=== PATIENT | male | born 1970 | race Caucasian/White ===

== ENCOUNTER 2023-12-11 14:09 | Emergency (ER) | payer MEDICAID, SELFPAY ==
[2023-12-11 14:14] VITALS: BP 160/90; PULSE 83; RESP 15; TEMP 36; O2SAT 95
--- NOTE | 2023-12-11 14:37 | W.ED.GENAD ---
Discharge Plan Disposition Patient Disposition: Home Condition: Stable Discharge Details Clinical Impression: Infected wound Primary Care Provider: Unknown,Unknown ED Provider: Alejandro Alcantar Home Meds and New Rx's Prescriptions: New sulfamethoxazole-trimethoprim [Bactrim DS] 800-160 mg tablet 1 tab PO BID Qty: 14 0RF amoxicillin-pot clavulanate 875-125 mg tablet 1 tab PO BID Qty: 14 0RF Continued hydroxychloroquine 200 mg tablet 200 mg PO DAILY Patient Comments: TAKE ONE TABLET BY MOUTH EVERY DAY omeprazole 40 mg capsule,delayed release(DR/EC) 40 mg PO DAILY Patient Comments: TAKE ONE CAPSULE BY MOUTH EVERY DAY gabapentin 300 mg capsule 300 mg PO TID Patient Comments: TAKE ONE CAPSULE BY MOUTH THREE TIMES A DAY quetiapine 100 mg tablet 100 mg PO DAILY PRN Patient Comments: TAKE ONE TABLET BY MOUTH AT BEDTIME DIRECTED quetiapine 50 mg tablet 50 mg PO DAILY Patient Comments: TAKE ONE TABLET BY MOUTH EVERY MORNING DIRECTED Discharge Instructions Care Plan Goals: Please take antibiotics as prescribed. Avoid touching the wounds is much as possible. Follow-up with your primary care provider within 1 to 2 weeks If you feel more ill or have new symptoms such as difficulty breathing return to the emergency department for reevaluation. HPI General Mode of arrival: ambulatory. Date/Time Provider Initiated Documentation: 12/11/23 14:11. Limitations to Documentation: no limitations. Information obtained by: patient. History of Present Illness 53 year old M presents to the emergency department with the chief complaint of lesions on legs and arms, described as moderate, Patient started experiencing this day(s) (10) and it has been constant. No relieving factors improve symptom(s), No exacerbating factors reported . Patient notes denies fever/chills. Patient did receive the following treatments prior to arrival, none Related Data Home Medications ?Medication ?Instructions ?Recorded ?Confirmed amoxicillin 875 mg-potassium 1 tab PO BID #14 tabs 12/11/23 clavulanate 125 mg tablet gabapentin 300 mg capsule 300 mg PO TID 12/11/23 12/11/23 hydroxychloroquine 200 mg tablet 200 mg PO DAILY 12/11/23 12/11/23 omeprazole 40 mg capsule,delayed 40 mg PO DAILY 12/11/23 12/11/23 release quetiapine 100 mg tablet 100 mg PO DAILY PRN 12/11/23 12/11/23 quetiapine 50 mg tablet 50 mg PO DAILY 12/11/23 12/11/23 sulfamethoxazole 800 1 tab PO BID #14 tabs 12/11/23 mg-trimethoprim 160 mg tablet (Bactrim DS) Previous Rx's ?Medication ?Instructions ?Recorded amoxicillin 875 mg-potassium 1 tab PO BID #14 tabs 12/11/23 clavulanate 125 mg tablet sulfamethoxazole 800 1 tab PO BID #14 tabs 12/11/23 mg-trimethoprim 160 mg tablet (Bactrim DS) Allergies Allergy/AdvReac Type Severity Reaction Status Date / Time No Known Allergies Allergy Unverified 12/11/23 14:24 General Stated Complaint: RashLesion SERGEY: 3 Review of Systems All systems reviewed & are unremarkable except as noted in HPI and below Constitutional Constitutional: Denies chills, Denies fever(s) and Denies weakness Cardiovascular Cardiovascular: Denies chest pain and Denies dyspnea Respiratory Respiratory: Denies cough and Denies dyspnea Gastrointestinal Gastrointestinal: Denies abdominal pain, Denies nausea and Denies vomiting Integumentary/Breasts Skin/Breast: Reports wounds Neurologic Neurologic: Denies weakness Exam Const General: no acute distress Orientation: alert HENUT Head: normal to inspection Ears: external ears normal General nose exam: external nose normal Mouth: moist mucous membranes Eyes General: appearance normal, both eyes and all related structures Neck Neck: normal visual inspection Resp Effort & Inspection: normal respiratory effort and able to speak in complete sentences Cardio Jugular venous pressure: no JVD Rate: regular rate Heart Sounds: no murmurs Skin General skin exam: other (wounds on legs and arms) Neuro General: patient alert and patient oriented x3 Extrem General: normal to inspection Psych Mental Status: mental status grossly normal Course Vital Signs Vital signs: Vital Signs Temperature 36.0 C L 12/11/23 14:14 Pulse 83 12/11/23 14:14 Respiratory Rate 15 12/11/23 14:14 Blood Pressure 160/90 H 12/11/23 14:14 Pulse Oximetry 95 12/11/23 14:14 Temperature 36.0 C L 12/11/23 14:14 Pulse 83 12/11/23 14:14 Respiratory Rate 15 12/11/23 14:14 Respiratory Effort Normal 12/11/23 14:23 Blood Pressure 160/90 H 12/11/23 14:14 Blood Pressure Position Sitting 12/11/23 14:14 Pulse Oximetry 95 12/11/23 14:14 Oxygen Delivery Method Room Air 12/11/23 14:14 Oxygen Flow Rate 0 12/11/23 14:14 Medical Decision Making 53-year-old male with a history of substance abuse, denies ever using IV drugs but does use crack and smokes it, comes in with 1 to 2 weeks of scabs on his legs and arms. He also has a white fluid collection on the right palmar surface of his hand. He denies any fevers, chills, chest pain, difficulty breathing. He has scabs ranging in size from 2 to 3 cm on his anterior lower legs that appear to be pink wound, he denies picking however. There is faint 2 mm erythema surrounding these. He also has similar lesions on his arms, there is no crepitus or severe tenderness. He has a 1 x 2 cm superficial abscess on the right palmar surface, he has full range of motion and no swelling or pain in the fingers, fully range of motion of the fingers. No findings on exam to suggest flexor tenosynovitis. He gave verbal consent and I performed an I&D of the abscess and got purulent material. He tolerated well. This was done under sterile technique. He has no murmurs, no other lesions such as Janeway lesions to suggest endocarditis and has no signs of IV drug use on his arms. Will initiate oral antibiotic therapy and he will follow-up with his PCP, return precautions given. Given lack of systemic symptoms and his well appearance doubt sepsis and do not feel any labs or imaging indicated at this current time but he was given strict return precautions Differential Diagnosis Differential Diagnosis: drug abuse, cellulitis, abscess Quality:SDOH Health Related Social Needs: No Data to Display [facility] All Active Problems (Updated 12/11/23 @ 14:43 by Alejandro Alcantar MD) Infected wound (Acute) Social History Smoking risk assessment performed?: No
[2023-12-11] MEDS: Sulfameth/Trimeth DS TAB 1 TAB PO (15:10)
[2023-12-11] MEDS: Amoxicillin 875/Clav. 125 TAB PO (15:10)
== END 2023-12-11 15:35 | disposition home or self-care (01) ==
LOC: ER 15:12
PROVIDERS: Emergency Provider Emergency Medicine
DX: L98.8 Other specified disorders of the skin and subcutaneous tissue (principal); L08.9 Local infection of the skin and subcutaneous tissue, unspecified; L02.511 Cutaneous abscess of right hand; F14.90 Cocaine use, unspecified, uncomplicated
CPT/HCPCS: 10060; 99283

== ENCOUNTER 2024-04-05 13:18 | Emergency (ER) | payer MEDICAID, SELFPAY ==
[2024-04-05] VITALS (26 sets, daily range): BP systolic 124–150; BP diastolic 68–90; PULSE 69–92; RESP 5–30; TEMP 36.6–36.8; O2SAT 90–98
--- NOTE | 2024-04-05 13:30 | DI.RAD_ITS ---
Exam(s) XR PORTABLE CHEST AP EXAM: XR PORTABLE CHEST AP CLINICAL HISTORY: SOB trauma TECHNIQUE: 2D digital imaging was performed of the chest. One image was obtained. An AP view was ob tained. COMPARISON: There are no priors for comparison. FINDINGS: MEDIASTINUM: Normal. HEART: Normal. PULMONARY VASCULATURE: Normal. LUNGS: There are bilateral basilar infiltrates, left greater than right. PLEURAL SPACE: No pleural effusion or pneumothorax. BONE:Within normal limits for the patient's age. OTHER FINDINGS:Normal. IMPRESSION: Bilateral pulmonary infiltrates. This may represent contusion, atelectasis or pneumonia. DATA REPOSITORY: RADIATION DOSE DELIVERED:
--- NOTE | 2024-04-05 13:43 | W.ED.GENAD ---
Discharge Plan Disposition Patient Disposition: [facility] Discharge Details Clinical Impression: Hx of falling, Acute pain of left shoulder, Pain of right middle finger, Pericardial effusion, Ground glass opacity present on imaging of lung, Adrenal nodule, Esophageal reflux Primary Care Provider: None,None ED Provider: Marbin Goldberg [place] Meds and New Rx's Prescriptions: Continued hydroxychloroquine 200 mg tablet 200 mg PO DAILY Patient Comments: TAKE ONE TABLET BY MOUTH EVERY DAY omeprazole 40 mg capsule,delayed release(DR/EC) 40 mg PO DAILY Patient Comments: TAKE ONE CAPSULE BY MOUTH EVERY DAY gabapentin 300 mg capsule 300 mg PO TID Patient Comments: TAKE ONE CAPSULE BY MOUTH THREE TIMES A DAY quetiapine 100 mg tablet 100 mg PO DAILY PRN Patient Comments: TAKE ONE TABLET BY MOUTH AT BEDTIME DIRECTED quetiapine 50 mg tablet 50 mg PO DAILY Patient Comments: TAKE ONE TABLET BY MOUTH EVERY MORNING DIRECTED sulfamethoxazole-trimethoprim [Bactrim DS] 800-160 mg tablet 1 tab PO BID Qty: 14 0RF amoxicillin-pot clavulanate 875-125 mg tablet 1 tab PO BID Qty: 14 0RF sulfamethoxazole-trimethoprim [Bactrim DS] 800-160 mg tablet 1 tab PO BID Qty: 14 0RF amoxicillin-pot clavulanate 875-125 mg tablet 1 tab PO BID Qty: 14 0RF Discharge Instructions Additional Instructions: You are seen in the emergency department for your fall. Your CAT scan showed no sign of any broken bones. You have no fractures in your shoulder nor in your right hand. Please follow-up with your primary care provider or your mesothelioma team as she had the following incidental findings: Small pericardial effusion??this is a small amount of fluid around your heart, Left adrenal nodule??this is a small abnormal growth on the gland above your kidneys, and Groundglass changes in your lungs??this is inflammation in the lower portions of your lungs. You will also benefit from general surgery follow-up as you have a distended esophagus with food and fluid for which she will benefit from an upper endoscopy which is a procedure in which a camera is used to evaluate your esophagus and stomach. Please continue taking your pain medications as previously prescribed. For your pain please take medications as follows: 1. Take acetaminophen (Tylenol), 1,000 mg (two 500 mg tabs) every 6 hours [2. Take ibuprofen (Advil), 400 mg every 6 hours.] Discharge Data Discharge Date/Time-TO BE ENTERED AT DEPARTURE: 04/05/24 17:38 HPI General Date/Time Provider Initiated Documentation: 04/05/24 13:33. HPI Narrative: MDM Primary care intact. Reassuring shock index. Secondary survey patient has left shoulder tenderness on palpation but no signs of dislocation for which we will get plain films. Patient also has right middle finger tenderness but full range of motion. On CT scan patient was found to have hiatal hernia. He was also found to have bibasilar infiltrates. He has not had any fevers nor cough so I do not feel that these are consistent with pneumonia so will defer antibiotics. He was found to have a small pericardial effusion and this may be related to a malignancy but is less likely posttraumatic finding given his lack of tachycardia hypotension and chest pain. I was in touch with Dr. Zavala who agreed that the patient would not require trauma transfer to tertiary care. He reported that he would be available to consult on the patient where the patient to be hospitalized. It may be that his small pericardial effusion is secondary to malignancy as he does have some enlarged lymph nodes in his thorax and adrenal nodule. He would likely benefit from an echocardiogram at some point. This also may be secondary to his remote history of mesothelioma. I advised patient of his incidental findings his adrenal nodule his pericardial effusion and his groundglass changes in his lungs and his distended esophagus. He will benefit from general surgery clinic follow-up for an upper endoscopy. His repeat H&H was stable and he was never tachycardic nor hypotensive. Given that he was stable and that it has been at least 48 hours since his injury I do not feel the patient requires hospitalization. Given that he is returning to halfway he will go to a somewhat monitored setting. We discussed that he should return to emergency department if he developed shortness of breath to any recurrent falls or if he developed nausea or vomiting that did not stop. HPI This is a 53-year-old male with history of reflux prior and remote prior mesothelioma with remote orchiectomy to the emergency department with corrections officers from incarceration following a fall. Patient reportedly fell 2-3 nights ago out of bed. He landed on his left side. He is right-handed and having pain in his left shoulder and right hand. He has been short of breath but denies nausea or vomiting. He is not having chest pain. Denies hematuria. Exam General: Well-appearing in no acute distress speaking in complete sentences. Head: Normocephalic, atraumatic. Eye: Extraocular eye movements intact. No conjunctival injection. No scleral icterus. Ear, nose, mouth, throat: Grossly normal inspection. Normal voice, handling secretions normally. Neck: Trachea midline. Back: No midline thoracic nor lumbar spinal tenderness. No step-offs or deformities. Cardiovascular: Well-perfused distal extremities. Regular rate and rhythm. Respiratory: Nonlabored respiration. Clear lungs bilaterally. Gastrointestinal: Nondistended abdomen. Musculoskeletal: Left shoulder with tenderness. No ecchymosis. Patient has pain when abducting his left shoulder greater than 90 degrees. He is able to touch his left hand to his contralateral right shoulder. Nontender humerus elbow forearm and hand. Warm well-perfused left hand 2+ left radial pulse. Sensation motor function intact in the left hand across the radial, median, and ulnar nerve distributions. Full range of motion forearm. Patient is able to fully flex and extend at the left elbow. Right hand with mild swelling at the base of the right long finger. Full range of motion right long finger across the MCP, PIP, and DIP joints. 2+ radial pulse. Cap refill less than 2 seconds right fingertips. Nontender right forearm elbow and humerus. Right shoulder nontender full range of motion. Pelvis stable. Bilateral lower extremities nontender. Full range of motion bilateral lower extremities. 5/5 strength dorsi and plantarflexion bilateral lowers. Skin: Normal for age and race, grossly normal temperature and turgor. No acute rash. Neurologic: Alert and appropriate, no apparent acute deficits. Psychiatric: Mood and manner are appropriate. Grooming and personal hygiene are appropriate. Related Data Home Medications ?Medication ?Instructions ?Recorded ?Confirmed amoxicillin 875 mg-potassium 1 tab PO BID #14 tabs 12/11/23 04/05/24 clavulanate 125 mg tablet amoxicillin 875 mg-potassium 1 tab PO BID #14 tabs 12/11/23 04/05/24 clavulanate 125 mg tablet gabapentin 300 mg capsule 300 mg PO TID 12/11/23 04/05/24 hydroxychloroquine 200 mg tablet 200 mg PO DAILY 12/11/23 04/05/24 omeprazole 40 mg capsule,delayed 40 mg PO DAILY 12/11/23 04/05/24 release quetiapine 100 mg tablet 100 mg PO DAILY PRN 12/11/23 04/05/24 quetiapine 50 mg tablet 50 mg PO DAILY 12/11/23 04/05/24 sulfamethoxazole 800 1 tab PO BID #14 tabs 12/11/23 04/05/24 mg-trimethoprim 160 mg tablet (Bactrim DS) sulfamethoxazole 800 1 tab PO BID #14 tabs 12/11/23 04/05/24 mg-trimethoprim 160 mg tablet (Bactrim DS) Previous Rx's ?Medication ?Instructions ?Recorded amoxicillin 875 mg-potassium 1 tab PO BID #14 tabs 12/11/23 clavulanate 125 mg tablet amoxicillin 875 mg-potassium 1 tab PO BID #14 tabs 12/11/23 clavulanate 125 mg tablet sulfamethoxazole 800 1 tab PO BID #14 tabs 12/11/23 mg-trimethoprim 160 mg tablet (Bactrim DS) sulfamethoxazole 800 1 tab PO BID #14 tabs 12/11/23 mg-trimethoprim 160 mg tablet (Bactrim DS) Allergies Allergy/AdvReac Type Severity Reaction Status Date / Time No Known Allergies Allergy Unverified 04/05/24 13:32 General Stated Complaint: Chest/Rib SERGEY: 3 Course Vital Signs Vital signs: Vital Signs Temperature 36.6 C 04/05/24 13:28 Pulse 92 H 04/05/24 13:28 Respiratory Rate 30 H 04/05/24 13:28 Blood Pressure 150/68 H 04/05/24 13:28 Pulse Oximetry 91 L 04/05/24 13:28 Temperature 36.6 C 04/05/24 13:28 Pulse 92 H 04/05/24 13:28 Respiratory Rate 30 H 04/05/24 13:28 Blood Pressure 150/68 H 04/05/24 13:28 Blood Pressure Position Sitting 04/05/24 13:28 Pulse Oximetry 91 L 04/05/24 13:28 Medical Decision Making Quality:SDOH Health Related Social Needs: No Data to Display PFSH All Active Problems (Updated 04/05/24 @ 17:14 by Marbin Goldberg MD) Esophageal reflux (Chronic) Adrenal nodule (Acute) Ground glass opacity present on imaging of lung (Acute) Pericardial effusion (Acute) Pain of right middle finger (Acute) Acute pain of left shoulder (Acute) Hx of falling (Acute) Social History Smoking risk assessment performed?: No
--- NOTE | 2024-04-05 14:00 | DI.CT_ITS ---
Exam(s) CT HEAD CERVICAL SPINE WO EXAM: CT HEAD CERVICAL SPINE WO CLINICAL HISTORY: Trauma. TECHNIQUE: Imaging Protocol: Axial computed tomography images with coronal and sagittal reformatted images were created and reviewed COMPARISON: No exams were available for comparison FINDINGS: CT Head: Ventricles and Extra axial spaces: Normal in size and morphology for the patient's age. Hemorrhage: None. Cerebral parenchyma: There is no acute mass effect. There is a normal jones-white matter differentiat ion. Midline shift: None. Brainstem/Cerebellum: Normal. Calvarium: Normal. Visualized Paranasal sinuses/Mastoids: There is near complete opacification of the visualized paranas al sinuses. The mastoid air cells are clear. Soft Tissues: Unremarkable. CT Cervical Spine: Bones: No acute fracture or subluxation. Soft Tissues: Unremarkable. Lung Apices: Clear. IMPRESSION: 1. No acute intracranial process. 2. Pansinusitis. 3. No acute fracture or subluxation in the cervical spine. RADIATION DOSE DELIVERED: 1,223.95mGy.cm Total DLP DATA REPOSITORY: All CT scans at this facility are submitted to the National Radiology Data Registry (NRDR) Dose Index Registry (DIR) with the [employer] (A[employer]). RADIATION OPTIMIZATION: All CT scans at this facility use at least one of these dose optimization te chniques: automated exposure control; mA and/or kV adjustment per patient size (includes targeted exa ms where dose is matched to clinical indication); or iterative reconstruction.
--- NOTE | 2024-04-05 14:00 | DI.CT_ITS ---
Exam(s) CT CHEST/ABD/PEL W CT THORACIC LUMBAR SPINE REC EXAM: CT CHEST/ABD/PEL W and CT thoracic and lumbar spine recons CLINICAL HISTORY: Trauma TECHNIQUE: Imaging Protocol: Axial computed tomography images with coronal and sagittal reformatted images were created and reviewed. Lung Computer Aided Detection (CAD) was utilized. CONTRAST MATERIAL: Intravenous: Omnipaque 350 contrast volume:100 mL Oral: No COMPARISON: CT CT THORACIC LUMBAR SPINE REC from 04/05/2024 FINDINGS: CHEST: Tracheobronchial tree: Patent where visualized. No evidence of bronchiectasis. Pulmonary parenchyma: There are dependent atelectatic changes in the lung bases. No architectural di stortion. Visualized thyroid gland: Unremarkable. Mediastinum and [place]: There are enlarged mediastinal and hilar lymph nodes. There is fluid seen in t he esophagus to the level of the aortic arch. The esophagus is mildly distended with mild thickening of the wall of the distal esophagus. Pleura: No effusion or pneumothorax. Heart: The heart is not dilated. Coronary artery calcifications are present. There is a small perica rdial effusion. Pulmonary arteries: There is no evidence of a pulmonary embolism to the level of the segmental pulmon rocael arteries. Aorta: Thoracic aorta non-dilated. No evidence of dissection. Lymph nodes: No axillary or supra clavicular adenopathy is present. Soft tissues: Unremarkable. Bones:Within normal limits for the patient's age. There is a sclerotic focus seen in the distal aspe ct of the right scapula. CT scan of the thoracic spine recons: No acute fracture or subluxation. There is an old well cortica joyce osseous density at the tip of the spinous process of T3. CT scan of the lumbar spine recons: No acute fracture or subluxation is present. ABDOMEN: Liver: Normal density. No measurable mass. There is no evidence of hepatic laceration or perihepatic hematoma. Portal, Superior Mesenteric, and Splenic Veins: Unremarkable. Gallbladder and Biliary Tract: No radiodense calculus or dilation. Pancreas: Normal density, no abnormal calcifications or inflammatory process. Spleen: Normal. There is no evidence of a splenic laceration. Adrenals: There is a 1.9 x 2.6 cm left adrenal nodule. It is hypodense. The right adrenal gland is unremarkable. Kidneys: Normal size, contour and axis. No radiodense stones or obstructive uropathy. No masses seen. Abdominal Aorta: Abdominal portion non-dilated. Atherosclerotic calcification is seen. No dissection is present. Bowel: No obstruction or bowel wall thickening. The stomach is distended. There is no evidence of ap pendicitis. There is a moderate amount of stool throughout the colon. There are mildly dilated loop s of small bowel which may represent an ileus. Peritoneal Cavity: No ascites, collection or mesenteric inflammatory response. No free air. Lymph Nodes: Within normal limits. Bones: Within normal limits for the patient's age. Soft Tissues: Unremarkable. PELVIS: Bladder: Symmetric distention, no gross wall thickening. The bladder is distended. Reproductive Organs: Unremarkable as visualized. Lymph Nodes: Within normal limits. Bones: Within normal limits. IMPRESSION: 1. No acute fracture or subluxation in the thoracic or lumbar spine. 2. Thickening of the wall of the distal esophagus with distension proximally and a lobe fluid in debr is-filled esophagus to the level of the thoracic aortic arch. Distal esophageal mass/esophagitis sushila uld be considered. Upper endoscopy should be considered for further evaluation. Due to the large am ount of fluid within the esophagus, aspiration should be considered. 3. Bilateral ground-glass infiltrates. Pneumonia should be considered. 4. Mediastinal and hilar adenopathy. Metastatic disease versus infection/inflammation. 5. No acute abdominal or pelvic organ injury. 6. Left adrenal nodule. Further evaluation with the adrenal protocol CT or MRI is recommended. 7. Small pericardial effusion. 8. Findings suspicious for an abdominal ileus. RADIATION DOSE DELIVERED: 602.44mGy.cm Total DLP DATA REPOSITORY: All CT scans at this facility are submitted to the National Radiology Data Registry (NRDR) Dose Index Registry (DIR) with the [employer] (ACR). RADIATION OPTIMIZATION: All CT scans at this facility use at least one of these dose optimization te chniques: automated exposure control; mA and/or kV adjustment per patient size (includes targeted exa ms where dose is matched to clinical indication); or iterative reconstruction.
[2024-04-05 14:10] LABS: Abs Immature Grans 0.05 10^3/uL (0.0-0.06); Absolute Basophil Count 0.05 10^3/uL (0.0-0.2); Absolute Eosinophil Count 0.74 10^3/uL (0.0-0.7); Absolute Lymphocyte Count 3.54 10^3/uL (1.2-3.4); Absolute Monocyte Count 1.11 10^3/uL (0.1-0.8); Absolute Neutrophil Count 5.12 10^3/uL (1.2-6.7); Basophils % 0.5 %; HGB 8.3 g/dL (13.5-17.5); Immature Grans % 0.5 %; Lymphocytes % 33.4 %; MCHC 30.7 % (32.0-36.0); MCV 81 fL (80-95); MPV 8.7 fL (8.0-11.0); Monocytes % 10.5 %; Neutrophils % 48.1 %; Platelet Count 397 10^3/uL (130-400); RBC 3.32 10^6/uL (4.36-5.78); RDW 17.9 % (11.8-14.1); RDW-SD 51.8 fL; WBC 10.61 10^3/uL (4.4-10.8)
--- NOTE | 2024-04-05 14:15 | DI.RAD_ITS ---
Exam(s) XR SHOULDER LT COMPLETE 2+V EXAM: XR SHOULDER LT COMPLETE 2+V CLINICAL HISTORY: Left shoulder pain from. TECHNIQUE: 2D digital imaging was performed of the left shoulder. Four images were obtained. AP, G rashey and Y views were obtained. COMPARISON: No priors for comparison. FINDINGS: BONES: No acute fracture is present. No bony destructive lesion is seen. JOINTS: No dislocation present. SOFT TISSUE: Normal. IMPRESSION: No acute fracture or dislocation. DATA REPOSITORY: RADIATION DOSE DELIVERED:
--- NOTE | 2024-04-05 14:15 | DI.RAD_ITS ---
Exam(s) XR HAND RT COMPLETE EXAM: XR HAND RT COMPLETE CLINICAL HISTORY: Right middle finger pain trauma. TECHNIQUE: 2D digital imaging was performed of the right hand. Three images were obtained. AP, late ral and oblique views were obtained. COMPARISON: No exams were available for comparison FINDINGS: BONES: No acute fracture is present. No bony destructive lesion is seen. JOINTS: No dislocation present. SOFT TISSUE: Normal. No radiopaque foreign body or soft tissue gas. IMPRESSION: No acute fracture or dislocation. DATA REPOSITORY: RADIATION DOSE DELIVERED:
[2024-04-05 14:22] LABS: Anion Gap 5.7 mmol/L (3-11); BUN 22 mg/dL (7-18); CO2 30.3 mmol/L (21.0-32.0); CREATININE 1.1 mg/dL (0.70-1.30); Calcium 8.8 mg/dL (8.5-10.1); Chloride 102 mmol/L (98-107); Estimated GFR 81.28 (mL/min/1.73m2); Glucose 104 mg/dL (74-106); Potassium 3.9 mmol/L (3.5-5.1); Sodium 138 mmol/L (136-145)
[2024-04-05 14:27] LABS: Prothrombin Time 10.1 sec (9.1-11.1)
--- NOTE | 2024-04-05 15:17 | DI.VRAD_ITS ---
PROCEDURE INFORMATION: Exam: XR Chest Exam date and time: 04/05/2024 2:07 PM Age: 53 years old Clinical indication: Other: SOB trauma TECHNIQUE: Imaging protocol: Radiologic exam of the chest. Views: 1 view. COMPARISON: No relevant prior studies available. FINDINGS: Lungs: The pulmonary vascularity is redistributed. There may be some bibasilar atelectasis. There may be some coarse increased parenchymal markings at the lung bases, mild. Pleural spaces: Unremarkable. No pleural effusion. No pneumothorax. Heart/Mediastinum: Heart size upper limits of normal. Bones/joints: Unremarkable. IMPRESSION: 1. Probable congestive heart failure. 2. Probable bibasilar atelectasis. Dictated and Authenticated by: Yari Yeh MD. Orderin Ashlyn Zazueta MD
[2024-04-05] MEDS: fentaNYL 100 MCG/2 ML VIAL 75 MCG IVP (15:49)
--- NOTE | 2024-04-05 15:58 | DI.VRAD_ITS ---
PROCEDURE INFORMATION: Exam: CT Chest With Contrast; Diagnostic Exam date and time: 04/05/2024 3:11 PM Age: 53 years old Clinical indication: Injury or trauma; Fall; Generalized; Blunt trauma (contusions or hematomas) TECHNIQUE: Imaging protocol: Diagnostic computed tomography of the chest with contrast. COMPARISON: CR XR PORTABLE CHEST AP 04/05/2024 2:07 PM FINDINGS: Lungs: There is moderate to severe ground-glass change seen at both lung bases. Pleural spaces: Unremarkable. No pneumothorax. No pleural effusion. Heart: Cardiomegaly. Small pericardial effusion. Esophagus: There is a large air-fluid level in a distended esophagus. Lymph nodes: Mild mediastinal and bilateral hilar adenopathy, left worse than right. Vasculature: Unremarkable. No aortic aneurysm. Bones/joints: Unremarkable. No acute fracture. Soft tissues: Unremarkable. IMPRESSION: 1. No evidence for acute posttraumatic abnormality. 2. Bibasilar ground-glass change, mediastinal and hilar adenopathy. Consider infectious process. Follow-up recommended. 3. Distended esophagus with food and fluid. Suspect reflux. Follow-up recommended. PROCEDURE INFORMATION: Exam: CT Abdomen And Pelvis With Contrast Exam date and time: 04/05/2024 3:11 PM Age: 53 years old Clinical indication: Injury or trauma; Fall; Generalized; Blunt trauma (contusions or hematomas) TECHNIQUE: Imaging protocol: Computed tomography of the abdomen and pelvis with contrast. COMPARISON: CT THORACIC LUMBAR SPINE REC 04/05/2024 3:11 PM FINDINGS: Liver: Normal. No mass. Gallbladder and biliary ducts: Gallbladder contracted. Pancreas: Normal. No ductal dilation. Spleen: Normal. No splenomegaly. Adrenal glands: Low-density left adrenal nodule 1.8 cm. Kidneys and ureters: Normal. No hydronephrosis. Stomach and bowel: There are some slightly distended small bowel loops with diameter approaching 3 cm. No definite bowel wall thickening noted. Moderate fecal retention pattern without colonic distension. Appendix: No evidence of appendicitis. Intraperitoneal space: Unremarkable. No free air. No significant fluid collection. Vasculature: Moderate atherosclerotic change present in the vasculature. Lymph nodes: Unremarkable. No enlarged lymph nodes. Urinary bladder: Unremarkable as visualized. Reproductive: Unremarkable as visualized. Bones/joints: Unremarkable. No acute fracture. Soft tissues: Unremarkable. IMPRESSION: Mild proximal small bowel distension. Consider ileus. Early or partial obstruction is considered less likely. Dictated and Authenticated by: Yari Yeh MD. Orderin Ashlyn Zazueta MD
--- NOTE | 2024-04-05 16:05 | DI.VRAD_ITS ---
PROCEDURE INFORMATION: Exam: CT Thoracic Spine Without Contrast Exam date and time: 04/05/2024 3:11 PM Age: 53 years old Clinical indication: Injury or trauma; Fall; Blunt trauma (contusions or hematomas) TECHNIQUE: Imaging protocol: Computed tomography of the thoracic spine without contrast. COMPARISON: CT CHEST/ABD/PEL W 04/05/2024 3:11 PM FINDINGS: Bones/joints: No acute fracture. Normal alignment. No significant disc bulge or herniation. No severe spinal canal stenosis. No significant neural foraminal narrowing. Soft tissues: Unremarkable. Esophagus: There is an air-fluid level in a mildly distended esophagus. The stomach is full of fluid and food. Lungs: There is right lower lobe medial atelectasis. Adrenal glands: Left adrenal lesion low-density noted 2.1 cm. IMPRESSION: 1. No evidence for acute posttraumatic abnormality. 2. Fluid and debris-filled esophagus noted. PROCEDURE INFORMATION: Exam: CT Lumbar Spine Without Contrast Exam date and time: 04/05/2024 3:11 PM Age: 53 years old Clinical indication: Injury or trauma; Fall; Blunt trauma (contusions or hematomas) TECHNIQUE: Imaging protocol: Computed tomography of the lumbar spine without contrast. COMPARISON: CT CHEST/ABD/PEL W 04/05/2024 3:11 PM FINDINGS: Bones/joints: No acute fracture. Normal alignment. No significant disc bulge or herniation. No severe spinal canal stenosis. No significant neural foraminal narrowing. Adrenal glands: 2.1 cm low-density left adrenal nodule noted. Vasculature: Moderate atherosclerotic change present in the vasculature. Soft tissues: Unremarkable. IMPRESSION: No evidence for acute posttraumatic abnormality. Dictated and Authenticated by: Yari Yeh MD. Orderin Ashlyn Zazueta MD
--- NOTE | 2024-04-05 16:06 | DI.VRAD_ITS ---
PROCEDURE INFORMATION: Exam: XR Right Hand Exam date and time: 04/05/2024 3:31 PM Age: 53 years old Clinical indication: Pain; Hand; Right; Trauma TECHNIQUE: Imaging protocol: Radiologic exam of the right hand. Views: 3 or more views. COMPARISON: No relevant prior studies available. FINDINGS: Bones/joints: Normal. Soft tissues: Normal. IMPRESSION: No evidence for acute posttraumatic abnormality. Dictated and Authenticated by: Yari Yeh MD. Orderin Ashlyn Zazueta MD
--- NOTE | 2024-04-05 16:07 | DI.VRAD_ITS ---
PROCEDURE INFORMATION: Exam: XR Left Shoulder Exam date and time: 04/05/2024 3:34 PM Age: 53 years old Clinical indication: Pain; Shoulder; Left; Fall TECHNIQUE: Imaging protocol: Radiologic exam of the left shoulder. Views: 2 or more views. COMPARISON: CT CHEST/ABD/PEL W 04/05/2024 3:11 PM FINDINGS: Bones/joints: Normal. Soft tissues: Normal. IMPRESSION: No evidence for acute posttraumatic abnormality. Dictated and Authenticated by: Yari Yeh MD. Orderin Ashlyn Zazueta MD
--- NOTE | 2024-04-05 16:13 | DI.VRAD_ITS ---
PROCEDURE INFORMATION: Exam: CT Head Without Contrast Exam date and time: 04/05/2024 3:04 PM Age: 53 years old Clinical indication: Injury or trauma; Fall; Blunt trauma (contusions or hematomas) TECHNIQUE: Imaging protocol: Computed tomography of the head without contrast. COMPARISON: No relevant prior studies available. FINDINGS: Brain: Normal. No hemorrhage. Unremarkable white matter. No mass effect. Cerebral ventricles: No ventriculomegaly. Paranasal sinuses: Opacities in the ethmoid sinuses and maxillary sinuses and sphenoid sinuses and frontal sinuses may represent sinusitis. Mastoid air cells: Visualized mastoid air cells are well aerated. Bones: Unremarkable. No acute fracture. Soft tissues: Unremarkable. IMPRESSION: Opacities in the ethmoid sinuses and maxillary sinuses and sphenoid sinuses and frontal sinuses may represent sinusitis. No acute intracranial hemorrhage PROCEDURE INFORMATION: Exam: CT Cervical Spine Without Contrast Exam date and time: 04/05/2024 3:04 PM Age: 53 years old Clinical indication: Injury or trauma; Fall; Blunt trauma (contusions or hematomas) TECHNIQUE: Imaging protocol: Computed tomography of the cervical spine without contrast. COMPARISON: CR XR PORTABLE CHEST AP 04/05/2024 2:07 PM FINDINGS: Bones: No acute fracture. Normal alignment. No significant disc bulge or herniation. No severe spinal canal stenosis. No significant neural foraminal narrowing. Lungs: Lung apices are normal. Soft tissues: Unremarkable. IMPRESSION: No acute findings. Dictated and Authenticated by: Rebecca Payne MD. Orderin Ashlyn Zazueta MD
[2024-04-05 16:59] LABS: HCT 26.7 % (40.0-50.0); HGB 8.3 g/dL (13.5-17.5)
[2024-04-05] MEDS: MORPHine IR 15 MG TAB PO (17:31)
[2024-04-05] MEDS: Acetaminophen 500 MG TAB 1000 MG PO (17:31)
== END 2024-04-05 17:38 ==
PROVIDERS: Emergency Provider Emergency Medicine
DX: M25.512 Pain in left shoulder (principal); M79.644 Pain in right finger(s); I31.39 Other pericardial effusion (noninflammatory); R91.8 Other nonspecific abnormal finding of lung field; E27.9 Disorder of adrenal gland, unspecified; K21.9 Gastro-esophageal reflux disease without esophagitis; W06.XXXA Fall from bed, initial encounter; Z91.81 History of falling
CPT/HCPCS: 36415; 74177; 76604; 76705; 80048; 86850; 86900; 86901; 93308; 96374; 99285; 70450; 71045; 71260; 72125; 73030; 73130; 85014; 85018; 85025; 85610; 99284; J3010

== ENCOUNTER 2024-06-09 07:41 | Day surgery (SDC) | payer OTHER, SELFPAY ==
--- NOTE | 2024-06-08 09:46 | W.PM.DSUDISC ---
Date of service: 06/09/24 Discharge Plan Disposition Patient Disposition: Home Condition: Good Discharge Details Reason For Visit: diagnostic EGD Attending Provider: Salvatore Zavala Primary Care Provider: None,None Home Meds and New Rx's Prescriptions: Continued aspirin 81 mg capsule 81 mg PO DAILY atorvastatin [Lipitor] 20 mg tablet 20 mg PO DAILY Antacid Ext Str (calcium carb) 300 mg (750 mg) tablet,chewable 300 mg PO TID PRN hydroxychloroquine 200 mg tablet 200 mg PO DAILY Patient Comments: TAKE ONE TABLET BY MOUTH EVERY DAY omeprazole 40 mg capsule,delayed release(DR/EC) 40 mg PO DAILY Patient Comments: TAKE ONE CAPSULE BY MOUTH EVERY DAY gabapentin 300 mg capsule 300 mg PO TID Patient Comments: TAKE ONE CAPSULE BY MOUTH THREE TIMES A DAY quetiapine 100 mg tablet 100 mg PO DAILY PRN Patient Comments: TAKE ONE TABLET BY MOUTH AT BEDTIME DIRECTED quetiapine 50 mg tablet 50 mg PO DAILY Patient Comments: TAKE ONE TABLET BY MOUTH EVERY MORNING DIRECTED Discharge Instructions Instructions: Esophagoscopy Additional Instructions: Aki, it was very nice seeing you today, and I hope you feel well after the procedure. Things went very smoothly. With regards to the esophageal dilation seen on your CT scan today, I did not see any evidence of any obstruction or blockage of the esophagus. There is a little bit of inflammation at the bottom part of your esophagus. This area, as well as several other areas were biopsied to see if we can clarify the diagnosis. I did not see any obvious signs of cancers today, but the biopsies would be the most useful test for that. Biopsy results will take about a week or 2 to get back like we discussed beforehand. Putting this altogether, at this point, I suspect that the most likely diagnosis here is esophageal dysmotility, or abnormalities of the contractions of the esophagus as it moves food from your mouth into your stomach. Generally, this is treated with proton pump inhibitor therapy such as the omeprazole that you are already using. Dietary modifications can be useful, and sometimes referral to a specialist is beneficial as well. Before we make any decisions, we will wait to see what the biopsy results show. 1. If tolerated, consume a soft, low fiber diet for 1-2 days. 2[address] Do not drive, drink alcohol, operate machinery, make critical decisions, or do activities that require coordination or balance for 24 hours. 3. You may experience a sore throat for 24 to 48 hours. You may use throat lozenges or gargle with warm salt water to relieve the discomfort. 4. Because air was put into your stomach during the procedure, you may experience some belching. 5. Go directly to the emergency room if you notice any of the following: Develop chills (warm to touch), or if you have a thermometer and your temperature is above 101 Difficulty breathing or difficultly swallowing Persistent vomiting Severe abdominal pain, other than gas cramps Severe chest pain Black, tarry stools Any bleeding ? exceeding one tablespoon 6. Call your physician if the site where your intravenous was started becomes red, swollen, painful, and warm to touch. 7. Your physician has reviewed your pre-procedure medications. Please continue to take those medications as previously ordered. You will be given specific information/education regarding any changes to your medications before leaving. Activity:: Activity as Tolerated Diet:: As Tolerated Discharge Orders Discharge Orders: Discharge Order (Routine); Ordered 06/08/24 Ordered By: Salvatore Zavala DS: Diagnosis Discharge Diagnosis (1) Esophagitis: Status: Acute Asessment and Plan: Follow-up on biopsy results
--- NOTE | 2024-06-08 09:48 | ENDO_ITS ---
Date of service: 06/09/24 Time of Service: 09:37 Endoscopy Report DATE OF PROCEDURE: 06/09/24 PRE-OP DIAGNOSIS: Esophagitis POST-OP DIAGNOSIS: other (Crest syndrome) PROCEDURE: EGD with biopsies SURGEON: Salvatore Zavala ANESTHESIA TYPE: General:No Airway ESTIMATED BLOOD LOSS: 5 PATHOLOGY: other (Nondirected biopsies of gastric antrum and body to rule out H. pylori. Four-quadrant biopsies of the GE junction to rule out Taylor's esophagus, nondirected biopsies of distal and mid esophagus.) COMPLICATIONS: None DISPOSITION: same day INDICATIONS: Magnus is a 53 year old man with esophageal dilation seen on the CT scan PROCEDURE START TIME: : PROCEDURE END TIME: FINDINGS: Mildly dilated esophagus with mild inflammation of the distal esophagus. Grade 1 hiatal hernia PROCEDURE DESCRIPTION: After the initiation of anesthesia, and with the assistance of a bite block, I advanced a standard gastroscope through the mouth past the hypopharynx and into the esophagus.? Under the direct vision of the scope, I advanced down the esophagus towards the stomach.? The upper esophagus was largely normal. There was gentle dilation of the esophagus towards the midportion, and this was consistent down throughout the lower esophagus. There was a small amount of retained food bolus in the distal esophagus which was easily advanced down into the stomach. The distal esophagus had some mild inflammation consistent with stasis here. I did not see any discrete lesions concerning for malignancy. Narrowband imaging was used to assist with the analysis. The GE junction measured approximately 40 cm from the incisors, with some mild irregularity of the Z-line extending proximally to about 38 cm. Exact measurements were a little bit difficult as there did seem to be features consistent with a sliding hiatal hernia. Again, I could Smart down across the GE junction into the stomach with ease. Stomach was insufflated into the rugae were obliterated. Retroflexion was performed. Again, it appeared that there was probably grade 1 hiatal hernia. The remainder of the stomach down through the incisura angularis the pylorus and into the second portion of the duodenum was all normal. I then brought the camera back up into the stomach and perform some nondirected b iopsies of the gastric antrum and body to rule out Helicobacter pylori. The camera was then brought back up to the GE junction. Four-quadrant biopsies were performed of the GE junction. I also performed nondirected biopsies of the distal and midesophagus. These were all sent as a single specimen. All biopsies were performed with cold forceps with minimal bleeding. The camera was brought out along the length of the esophagus 1 last time. No other abnormalities were appreciated.
--- NOTE | 2024-06-08 17:53 | ANES.PREOP_ITS ---
General Info Date of Service Date Performed: 06/09/24 Height: 5 ft 7 in Weight: 75.41 kg Body Mass Index (BMI): 26.0 Surgical Procedure: Operation Date: 06/09/24 09:05 Proposed Procedure Side Surgeon p Gastroscopy Salvatore Zavala MD Meds Allergies and Home Medications Allergies Allergy/AdvReac Type Severity Reaction Status Date / Time meloxicam Allergy Intermediate Unknown Verified 06/09/24 08:11 prednisone AdvReac Intermediate Other (See Verified 06/09/24 08:11 Comment) Home Medication ?Medication ?Instructions ?Recorded gabapentin 300 mg capsule 300 mg PO TID 12/11/23 hydroxychloroquine 200 mg tablet 200 mg PO DAILY 12/11/23 omeprazole 40 mg capsule,delayed 40 mg PO DAILY 12/11/23 release quetiapine 100 mg tablet 100 mg PO DAILY PRN 12/11/23 quetiapine 50 mg tablet 50 mg PO DAILY 12/11/23 aspirin 81 mg capsule 81 mg PO DAILY 06/05/24 atorvastatin 20 mg tablet (Lipitor) 20 mg PO DAILY 06/05/24 calcium carbonate (Antacid Ext Str 300 mg PO TID PRN 06/05/24 (calcium carb)) Current Visit Medications: Current Medications Generic Name Dose Route Start Last Admin Trade Name Freq PRN Reason Stop Dose Admin Ringer's Solution 1,000 mls @ 80 mls/hr 06/09/24 06:00 IV 06/09/24 23:59 INFUSION MELANIE IV Miscellaneous Supplies 1 each 06/09/24 06:00 Iv Access IV 06/09/24 23:59 DIRECTED MELANIE Ondansetron HCl 4 mg 06/08/24 09:49 Ondansetron 4 Mg/2 Ml Vial IVP 07/08/24 09:48 Q4H PRN PRN Nausea / Vomiting Sodium Chloride 0 ml 06/09/24 06:00 Normal Saline Flush 10 Ml Syr IV 06/09/24 23:59 PRN PRN Sodium Chloride 0 ml 06/09/24 06:00 Normal Saline 10 Ml Vial IJ 06/09/24 23:59 DIRECTED PRN Sterile Water 0 ml 06/09/24 06:00 Water,Injection,Sterile 10 Ml Vial IJ 06/09/24 23:59 DIRECTED PRN PFSH Active Problems Active Problems: Problem Status Onset Code Esophagitis Acute K20.90 Medical History Medical History (Updated 06/05/24 @ 13:17 by Zach Boland) LVH (left ventricular hypertrophy) H/O testicular mass Hx of smoking 23 ppd Polysubstance use disorder Chronic pain syndrome CAD (coronary artery disease) NSTEMI (non-ST elevated myocardial infarction) 2021 Mesothelioma GERD (gastroesophageal reflux disease) Insomnia Scleroderma HLD (hyperlipidemia) Surgical History Surgical History History of orchiectomy, unilateral (L) H/O radiofrequency ablation (RFA) of nerve of lumbar spine H/O cardiac catheterization 2018 Tobacco Smoking/Tobacco Use Status: Former Tobacco Use Passive smoking exposure: Yes Alcohol Alcohol Intake: never Substance Use Substance use: Current Sobriety Substance use type: former substance user Vital Signs and Lab Results Vital Signs Most Recent Vital Signs in EMR: Temp Pulse Resp BP Pulse Ox 36.5 C 55 L 16 130/74 98 06/09/24 07:57 06/09/24 07:57 06/09/24 07:57 06/09/24 07:57 06/09/24 07:57 Lab Results Blood Type / Crossmatch: No Data to Display Complete Blood Count: No Data to Display Complete Metabolic Panel: No Data to Display Liver Function Panel: No Data to Display Coagulation Panel: 2 No Data to Display Cardiac Panel: No Data to Display Arterial Blood Gas: No Data to Display Venous Blood Gas: No Data to Display Pancreas Panel: No Data to Display Thyroid Panel: No Data to Display Infectious Disease: No Data to Display Blood Cultures: No Data to Display Toxicology Panel: No Data to Display Anesthesia Assessment and Plan Anesthesia History Personal History: No History of General Anesthesia Family History: Family History Unknown Exercise Tolerance Exercise Tolerance: Metabolic Equivalents>4 Cardiac & Pulmonary Exam Cardiac Exam: Normal S1/S2 Heart Sounds Pulmonary Exam: Clear Bilateral Breath Sounds Implantable Cardiac Device Does patient have a Pacemaker or an ICD?: No Airway Exam Known Difficult Airway: No Mallampati Class: 4 Mouth Opening: Narrow (< 3cm) Thyromental Distance: Less than 3 cm Neck Range of Motion: Limited ROM Neck Circumference: Normal Teeth Condition: Generalized Poor Dentition ASA Classification ASA Score: ASA 3 Emergency Case?: No NPO Status NPO Status: NPO Clears >2 hours, Solids >8 hours Anesthesia Plan Resuscitation Status: Full Code Anesthesia Technique: General Anesthesia Airway Planned: Natural Airway Monitors Used: Standard Monitors Preoperative Comments:: 53 yo male for EGD. Sig PMHx: CAD (2021 NSTEMI, no stents), scleroderma, GERD (omeprazole, sleeps with HOB elevated), chronic pain. former smoker, ECHO: LVEF 65%.
[2024-06-09 07:57] VITALS: BP 130/74; PULSE 55; RESP 16; TEMP 36.5; O2SAT 98
[2024-06-09] MEDS: Lactated Ringers 1,000 ML 80 ML IV (08:09)
[2024-06-09 08:35] VITALS: BMI 26.0
--- NOTE | 2024-06-09 09:20 | STOM_PTH ---
PATIENT: Magnus Santillan II LOC: [facility] U#:[id number] AGE/SX: 53/M ROOM: RE06/09/[address]: Salvatore Zavala MD : 1970 BED: DIS: 06/09/2024 SPEC #: [id number] RECD: 06/09/24 12:11 STATUS: SYLVIA REQ #: [id number] DORIE: 06/09/24 09:[address]: Salvatore Zavala DEPT: Surgical Specimen RECD BY: Cady Mendieta ENTERED: 06/09/24 12:12 SP TYPE: STOMACH OTHR DR: None Tissues: 1 - STOMACH BIOPSY 2 - STOMACH BIOPSY 3 - ESOPHAGUS BIOPSY 4 - ESOPHAGUS BIOPSY Procedures: GROSS AND MICRO LEVEL 4 Comments: [id number]
[2024-06-09 09:31] VITALS: BP 106/73; PULSE 64; RESP 14; TEMP 36.4; O2SAT 98
--- NOTE | 2024-06-09 09:57 | W.ANESPOSTOP ---
Postoperative Evaluation Date, Time and Location Date Performed: 06/09/24 Time Performed: 09:57 Patient Location: Day Surgery Unit Vital Signs Most Recent Imported Vital Signs: Most Recent Vital Signs Temp Pulse Resp BP Pulse Ox 36.4 C L 64 14 106/73 98 06/09/24 09:31 06/09/24 09:31 06/09/24 09:31 06/09/24 09:31 06/09/24 09:31 Pain Score Most Recent Pain Score: Most Recent Pain Score Pain Level 0 06/09/24 09:31 Assessment Mental Status: Awake (Alert & Oriented to Patient Baseline) Airway and Respiratory Function: Patent airway with normal (patient baseline) respiratory exam Cardiovascular Function: Hemodynamically Stable Hydration Status: Adequately Hydrated Nausea & Vomiting: No Nausea or Vomiting Pain: Pt. Denies Any Pain Peripheral Nerve Block: Patient did not receive a nerve block
[2024-06-09 10:00] VITALS: BP 115/70; PULSE 56; RESP 16; TEMP 36.4; O2SAT 98
== END 2024-06-09 10:17 | disposition home or self-care (01) ==
LOC: SUR 07:42
PROVIDERS: Visit Provider Surgery
PROC: 0DJ68ZZ Inspection of Stomach, Via Natural or Artificial Opening Endoscopic (ICD-10-PCS; CPT 43235; principal; 2024-06-09 09:00)
DX: K20.90 Esophagitis, unspecified without bleeding (principal); M34.1 CR(E)ST syndrome; K22.89 Other specified disease of esophagus
CPT/HCPCS: 43239; 88305; J2250; J2405; J2704

== ENCOUNTER 2024-09-06 00:10 | Emergency (ER) | payer OTHER, SELFPAY ==
--- NOTE | 2024-09-05 23:45 | RT.EKG_ITS ---
APPROVED REPORT Exam: Resting ECG Reason for Exam: short of breath Patient Location: E HR:93 bpm ECG Measurements Heart Rate 93 AXIS NV 140 P 53 QRSd 99 QRS 62 QT 365 T 17 QTc 455 Conclusion Sinus rhythm...normal P axis, V-rate 60- 99 Probable left atrial enlargement...P >50mS, <-0.10mV V1 Physician: subtle anterior lateral depression
[2024-09-06] VITALS (38 sets, daily range): BP systolic 62–122; BP diastolic 44–72; PULSE 59–112; RESP 16–29; TEMP 36.6; O2SAT 83–99
--- NOTE | 2024-09-06 00:19 | NUR.NOTE ---
nitro drip stopped when PT arrived to EDNursing Note:
[2024-09-06 00:30] LABS: BE (Venous) -3 mmol/L (-2-3); HCO3 (Venous) 23 mmol/L (23-28); O2 Sat (Venous) 71 %; TCO2 (Venous) 22 mmol/L (24-29); pCO2 (Venous) 38 mmHg (41-51); pO2 (Venous) 41 mmHg
[2024-09-06 00:32] LABS: Abs Immature Grans 0.03 10^3/uL (0.0-0.06); HCT 26.2 % (40.0-50.0); HGB 7.9 g/dL (13.5-17.5); Immature Grans % 0.3 %; MCH 21.8 pg (27.0-33.0); MCHC 30.2 % (32.0-36.0); MCV 72 fL (80-95); MPV 8.9 fL (8.0-11.0); Platelet Count 497 10^3/uL (130-400); RBC 3.62 10^6/uL (4.36-5.78); RDW 16.5 % (11.8-14.1); RDW-SD 42.6 fL; WBC 10.75 10^3/uL (4.4-10.8)
--- NOTE | 2024-09-06 00:35 | W.ED.GENAD ---
Discharge Plan Disposition Patient Disposition: Home Condition: Good Discharge Details Clinical Impression: Esophagitis, Chest discomfort, Atypical pneumonia Primary Care Provider: Unknown,Unknown ED Provider: Dagoberto Thornton Home Meds and New Rx's Prescriptions: New pantoprazole [Protonix] 40 mg tablet,delayed release (DR/EC) 40 mg PO DAILY Qty: 60 0RF sucralfate [Carafate] 1 gram tablet 1 g PO BID Qty: 60 0RF amoxicillin-pot clavulanate 875-125 mg tablet 1 tab PO BID 7 Days Qty: 14 0RF azithromycin 250 mg tablet See Rx Instructions .ROUTE .COMPLEX Qty: 6 0RF Rx Instructions: For 250 mg dose pack: take 500 mg today (day 1), then 250 mg for 4 days (days 2-5) No Action aspirin 81 mg capsule 81 mg PO DAILY atorvastatin [Lipitor] 20 mg tablet 20 mg PO DAILY Antacid Ext Str (calcium carb) 300 mg (750 mg) tablet,chewable 300 mg PO TID PRN hydroxychloroquine 200 mg tablet 200 mg PO DAILY Patient Comments: TAKE ONE TABLET BY MOUTH EVERY DAY omeprazole 40 mg capsule,delayed release(DR/EC) 40 mg PO DAILY Patient Comments: TAKE ONE CAPSULE BY MOUTH EVERY DAY gabapentin 300 mg capsule 300 mg PO TID Patient Comments: TAKE ONE CAPSULE BY MOUTH THREE TIMES A DAY quetiapine 100 mg tablet 100 mg PO DAILY PRN Patient Comments: TAKE ONE TABLET BY MOUTH AT BEDTIME DIRECTED quetiapine 50 mg tablet 50 mg PO DAILY Patient Comments: TAKE ONE TABLET BY MOUTH EVERY MORNING DIRECTED Discharge Instructions Instructions: Esophagitis Additional Instructions: At this time your workup has returned and there is no evidence to suggest heart attack, aortic dissection, or other life-threatening abnormality. However, you do have 2 etiologies that require treatment. First, you have evidence of esophagitis, an inflamed esophagus that was likely the initial cause of your symptoms. Please avoid any red sauces, tomato-based products, or citrus products. Please stick with a bland diet that avoid spicy foods. Please take the Protonix and famotidine as prescribed to help with acid production and reflux. Second, you do have evidence of a mild atypical pneumonia. Please take the antibiotic as prescribed. If you notice any worsening of your symptoms, or any new symptoms such as vomiting, diarrhea, fever, chills, shortness of breath, chest pain, numbness, weakness, or fainting , please return immediately to the emergency department for reevaluation. Please follow up with your primary care provider as soon as possible for reassessment and reevaluation. As always, it was a pleasure participating in your medical care today. Discharge Data Discharge Date/Time-TO BE ENTERED AT DEPARTURE: 09/06/24 04:31 HPI General Date/Time Provider Initiated Documentation: 09/06/24 00:17. HPI Narrative: 54-year-old male with a past medical history of hypertension, high cholesterol, previous tobacco use, coronary artery disease with potential stents? (Patient states that this was done at [facility]) who presents today from care home for chest pain. About 1 to 2 hours ago the patient developed severe stabbing and ripping chest pain that goes from the back to the front. He also has an associated cough. When EMS arrived at the care home he was 82% on 4 L. They transition him to 10 L, and gave 1 nebulizer and Solu-Medrol and he came up to the high 80s. He also with his severe chest pain was given 1 nitroglycerin, and full dose aspirin. He was still noted to be hypertensive and with chest pain so he was started on a nitro drip. This improved his pain by about 25 to 40%. Patient denies any history of dissection or aneurysm in his family. He states that his father and grandfather in their 50s. He does not know from what. He denies any other complaints at this time. He states that this feels different than his previous myocardial infarction. Related Data Home Medications ?Medication ?Instructions ?Recorded ?Confirmed gabapentin 300 mg capsule 300 mg PO TID 12/11/23 06/09/24 hydroxychloroquine 200 mg tablet 200 mg PO DAILY 12/11/23 06/09/24 omeprazole 40 mg capsule,delayed 40 mg PO DAILY 12/11/23 06/09/24 release quetiapine 100 mg tablet 100 mg PO DAILY PRN 12/11/23 06/09/24 quetiapine 50 mg tablet 50 mg PO DAILY 12/11/23 06/09/24 aspirin 81 mg capsule 81 mg PO DAILY 06/05/24 06/09/24 atorvastatin 20 mg tablet (Lipitor) 20 mg PO DAILY 06/05/24 06/09/24 calcium carbonate (Antacid Ext Str 300 mg PO TID PRN 06/05/24 06/09/24 (calcium carb)) amoxicillin 875 mg-potassium 1 tab PO BID 7 days #14 tabs 09/06/24 clavulanate 125 mg tablet azithromycin 250 mg tablet See Rx Instructions PO .COMPLEX #6 09/06/24 tabs pantoprazole 40 mg tablet,delayed 40 mg PO DAILY #60 tabs 09/06/24 release (Protonix) sucralfate 1 gram tablet (Carafate) 1 g PO BID #60 tabs 09/06/24 Previous Rx's ?Medication ?Instructions ?Recorded amoxicillin 875 mg-potassium 1 tab PO BID 7 days #14 tabs 09/06/24 clavulanate 125 mg tablet azithromycin 250 mg tablet See Rx Instructions PO .COMPLEX #6 09/06/24 tabs pantoprazole 40 mg tablet,delayed 40 mg PO DAILY #60 tabs 09/06/24 release (Protonix) sucralfate 1 gram tablet (Carafate) 1 g PO BID #60 tabs 09/06/24 Allergies Allergy/AdvReac Type Severity Reaction Status Date / Time meloxicam Allergy Intermediate Unknown Verified 06/09/24 08:11 prednisone AdvReac Intermediate Other (See Verified 06/09/24 08:11 Comment) General Stated Complaint: Chest Pain SERGEY: 2 Exam Narrative Exam Narrative: 1.Const: Well-nourished, Well-developed, appearing stated age 2.Eyes: PERRL, no conjunctival injection, and symmetrical lids. 3.ENT: Atraumatic external nose and ears. Moist MM. Neck: Symmetric, trachea midline, No thyromegaly. 4.CVS: +S1/S2, Peripheral pulses 2+ and equal in all extremities. Brisk capillary refill in all extremities. Symmetric pulses bilaterally 5.RESP: Tachypnea, wheeze, no rhonchi or rales. 6.GI: Soft, Nontender/Nondistended, No hepatosplenomegaly. No guarding or rebound. 7.MSK: Normocephalic/Atraumatic, Extremities w/o deformity or ttp No cyanosis or clubbing, Normal movement of all extremities 8.Skin: sweaty and diaphoretic 9.Neuro: physician's aide II-XII grossly intact. Sensation grossly intact, no focal neurologic deficits. 10.Psych: (AAO) x3. Appropriate mood and affect Course Vital Signs Vital signs: Vital Signs Temperature 36.6 C 09/06/24 00:06 Pulse 112 H 09/06/24 00:06 Respiratory Rate 20 09/06/24 00:06 Blood Pressure 62/44 L 09/06/24 00:06 Pulse Oximetry 90 L 09/06/24 00:06 Temperature 36.6 C 09/06/24 00:06 Temperature Source Tympanic 09/06/24 00:06 Pulse 96 H 09/06/24 00:20 Pulse 96 H 09/06/24 00:20 Respiratory Rate 21 09/06/24 00:20 Respiratory Effort Short of Breath 09/06/24 00:14 Blood Pressure 117/72 09/06/24 00:19 Blood Pressure Mean 85 09/06/24 00:19 Pulse Oximetry 89 L 09/06/24 00:20 Respiratory End-tidal CO2 27 09/06/24 00:20 Oxygen Delivery Method Room Air 09/06/24 00:06 Oxygen Flow Rate 0 09/06/24 00:06 Pain Level 6 09/06/24 00:06 Lab/Test Results Lab/Test Results: Laboratory Tests Range/Units 09/06/24 00:20 VBG pH (7.31-7.41) 7.38 VBG pCO2 (41-51) mmHg 38 L VBG pO2 mmHg 41 VBG HCO3 (23-28) mmol/L 23 VBG Total CO2 (24-29) mmol/L 22 L VBG O2 Saturation % 71 VBG Base Excess (-2-3) mmol/L -3 L VBG Lactate (<or=2.0) mmol/L 2.2 H* Medical Decision Making 54-year-old male with a past medical history of hypertension, high cholesterol, previous tobacco use, coronary artery disease with potential stents? (Patient states that this was done at [facility]) who presents today from care home for chest pain. About 1 to 2 hours ago the patient developed severe stabbing and ripping chest pain that goes from the back to the front. He also has an associated cough. When EMS arrived at the care home he was 82% on 4 L. They transition him to 10 L, and gave 1 nebulizer and Solu-Medrol and he came up to the high 80s. He also with his severe chest pain was given 1 nitroglycerin, and full dose aspirin. He was still noted to be hypertensive and with chest pain so he was started on a nitro drip. This improved his pain by about 25 to 40%. Patient denies any history of dissection or aneurysm in his family. He states that his father and grandfather in their 50s. He does not know from what. He denies any other complaints at this time. He states that this feels different than his previous myocardial infarction. Exam demonstrates a sweaty and diaphoretic male, equal pulses bilaterally for the upper extremities. Nontender abdomen. Wheeze noted in the lungs. Limited bedside ultrasound shows good cardiac contractility with no evidence of significant wall motion abnormality, aortic outflow track appears unremarkable. Lung ultrasound shows no significant B-lines excited for the occasional B-lines, no pneumothorax. When the patient arrived his blood pressure was 62/44, that he was also on 50 mcg/min nitro from his initial chest pain/EMS transition. Nitro was immediately stopped and his blood pressure came up to 117/72. Differential is broad but includes asthma exacerbation, WA/ACS, dissection, less likely PE. We will evaluate for these etiologies, monitor closely and reassess. 3:41 AM On reassessment patient is feeling much better. Chest pain has resolved. It is unclear which treatment and the resolution of the pain came from. He was given morphine which seemed to make the biggest difference. Nitroglycerin did not seem to resolve his symptomatology. Laboratory workup shows microcytic anemia, which appears to be chronic rather than acute. Hemoglobin is 7.9, normally he runs around an 8-8.1. He denies any bloody stools. VBG is stable, initial lactate was 2.2, we are pending redraw. Potassium is low at 2.9, he was given 20 mEq of IV potassium here. Anion gap is elevated at 14 with a BUN of 19 with a creatinine of 1.1 suggestive of mild dehydration. proBNP normal, no signs of heart strain. Lipase normal. Initial troponin was 21, repeat troponin was 20. We are pending 3-hour troponin. CT imaging shows mild fluid distention in the mid to distal esophagus suggesting reflux. No pulmonary embolism or dissection. There are some bilateral hilar and mediastinal lymph nodes, and stenosis of the superior mesenteric artery, however he has no pain in the abdomen nor did he during this time. Symptoms are clinically inconsistent with acute mesenteric ischemia. He has some groundglass opacities in the left upper and bilateral lower lobes, albeit mild. However he does admit to a mild cough. Perhaps this may have been a component for his initial wheezes, and some chest discomfort. Out of an abundance of caution we will start the patient on azithromycin prescription. Otherwise at this time his symptoms appear inconsistent with a cardiac etiology however we are still pending third troponin, and repeat EKG. antibiotics will be given. In addition to the azithromycin we will do Augmentin as well out of concern for potential aspiration with his achalasia. Third troponin and repeat EKG have returned normal Patient will be discharged home. Discussed red flags which return. I have extensively reviewed the treatment plan and discharge instructions with the patient. I have addressed all patient concerns at this time. The patient was made aware of what symptoms to monitor for that would warrant a return to the emergency department. Discussed the plan with the patient, they demonstrate verbal understanding and agreement with our assessment and plan at this time. The documentation in this chart was dictated using [employer] dictation software. Please excuse any dictation errors. FINDINGS: VASCULATURE: Pulmonary arteries: Normal. No pulmonary emboli. Aorta: No aortic aneurysm. No aortic dissection. Celiac trunk and mesenteric arteries: No stenosis celiac artery. 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 Renal arteries: No occlusion or significant stenosis. Right iliac arteries: No occlusion or significant stenosis Left iliac arteries: No occlusion or significant stenosis. CHEST: Lungs: Mild peribronchiolar airspace disease and ground-glass opacities at the left upper and both lower lobes. Pleural spaces: Unremarkable. No pneumothorax. No pleural effusion. Heart: Small pericardial effusion. Coronary arteries: Mild atherosclerotic calcification coronary arteries. Esophagus: Moderate fluid distention of the mid and distal esophagus suggestive of reflux. ABDOMEN AND PELVIS: Liver: Nodular contour to the liver consistent with hepatocellular dysfunction/ cirrhosis. Gallbladder and biliary ducts: Unremarkable. No calcified stones. No ductal dilation. Pancreas: Unremarkable. No mass. No ductal dilation. Spleen: Unremarkable. No splenomegaly. Adrenal glands: Stable 2.4 cm indeterminate left adrenal nodule. Kidneys and ureters: Unremarkable. No solid mass. No hydronephrosis. Stomach and bowel: Unremarkable. No obstruction. No mucosal thickening. Appendix: No evidence of appendicitis. Intraperitoneal space: Unremarkable. No free air. No significant fluid collection. Urinary bladder: Unremarkable. No mass. Reproductive: Unremarkable as visualized. Lymph nodes: Prominent bilateral hilar and mediastinal nodes largest 2.6 x 1.7 cm. Bones/joints: Unremarkable. No acute fracture. Soft tissues: Unremarkable. IMPRESSION: 1. Small pericardial effusion. 2. Moderate fluid distention of the mid and distal esophagus suggestive of reflux. 3. No pulmonary embolism identified. 4. Prominent bilateral hilar and mediastinal nodes largest 2.6 x 1.7 cm. 5. 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 6. Mild peribronchiolar airspace disease and ground-glass opacities at the left upper and both lower lobes. 7. Nodular contour to the liver consistent with hepatocellular dysfunction/ cirrhosis. 8. Stable 2.4 cm indeterminate left adrenal nodule. Thank you for allowing us to participate in the care of your patient. Dictated and Authenticated by: Arslan Garcia MD 09/06/2024 1:40 AM Eastern Time ([place] & [place]) PFSH All Active Problems (Updated 09/06/24 @ 03:50 by Dagoberto Thornton DO) Atypical pneumonia (Acute) Chest discomfort (Acute) Esophagitis (Acute) Esophagitis (Acute) Medical History (Updated 09/06/24 @ 03:50 by Dagoberto Thornton DO) LVH (left ventricular hypertrophy) H/O testicular mass Hx of smoking 23 ppd Polysubstance use disorder Chronic pain syndrome CAD (coronary artery disease) NSTEMI (non-ST elevated myocardial infarction) 2021 Mesothelioma GERD (gastroesophageal reflux disease) Insomnia Scleroderma HLD (hyperlipidemia) Surgical History (Updated 06/10/24 @ 11:34 by Gerda Zuniga) History of esophagogastroduodenoscopy (~05/2024) History of orchiectomy, unilateral (L) H/O radiofrequency ablation (RFA) of nerve of lumbar spine H/O cardiac catheterization 2019 Social History Smoking/Tobacco Use Status: Former Tobacco Use Quit Date: 04/01/24 Smoking risk assessment performed?: Yes Alcohol Intake: never Drug use: Current Sobriety Substance use type: former substance user Housing: other Additional [facility] Ex[facility] (ED) Limited Cardiac Exam DATE OF EXAM: 09/06/24 TIME OF EXAM: 00:40 PROVIDER THAT PERFORMED THE STUDY: Dagoberto Thornton IS THIS A REPEAT EXAM DURING THIS ENCOUNTER: no REASON FOR EXAM: Chest pain VISUALIZED STRUCTURES: Left atrium, Left ventricle, Right ventricle, Mitral valve and Interventricular septum VIEW OBTAINED: Parasternal long-axis and Parasternal short-axis PERTINENT FINDINGS/IMPRESSION: No apparent abnormalities Exam complete Limited Thoracic Lung Exam DATE OF EXAM: 09/06/24 TIME OF EXAM: 00:40 PROVIDER THAT PERFORMED THE STUDY: Dagoberto Thornton IS THIS A REPEAT EXAM DURING THIS ENCOUNTER: No REASON FOR EXAM: Chest pain VISUALIZED STRUCTURES: right anterior, left anterior, right posterior and left posterior PERTINENT FINDINGS/IMPRESSION: B-lines/left side thoracis location: posterior; no pneumothorax Exam complete
[2024-09-06 00:42] LABS: Microcytosis 1+
[2024-09-06] MEDS: Omnipaque 350 MG/ML 100 ML BTL IJ (00:42)
[2024-09-06] MEDS: Normal Saline - Diluent 50 ML VIAL IJ (00:42)
--- NOTE | 2024-09-06 00:43 | DI.CT_ITS ---
Exam(s) CT THORAX ABD/PEL CTA EXAM: CT THORAX ABD/PEL CTA CLINICAL HISTORY: Right open chest pain, rule out dissection. TECHNIQUE: Imaging Protocol: Axial CT angiography was performed with multi- slice acquisition and multi-planar and/or 3D reconstructions. Computer aided detection (CAD) was utilized. CONTRAST MATERIAL: Intravenous: Omnipaque 350 Contrast volume:100 ml Intravenous: Omnipaque 350 Contrast volume:100 ml COMPARISON: CR,XR XR PORTABLE CHEST AP from 04/05/[address] CHEST/ABD/PEL W from 04/05/[address] THORACIC LUMBAR SPINE REC from 04/05/2024 FINDINGS: CHEST: Pulmonary Arteries: No evidence of filling defects to suggest pulmonary emboli. Tracheobronchial tree: No bronchiectasis or mucus plugging. Mediastinum and [place]: Stable mildly enlarged mediastinal and hilar lymph nodes. Dilated esophagus again noted, fluid-filled. No visible mass. Mass or stricture not excluded. Pulmonary parenchyma: No consolidation or dominant measurable mass. Mild emphysematous changes in the upper lobes. Dependent changes at the lung bases. Ground-glass glass opacities at the lung bases could represent pneumonitis versus atelectatic changes. Pleura: No effusion. No pneumothorax. Heart: The heart is notdilated. Minimal coronary artery calcifications are seen. Small pericardial effusion which appears slightly increased from prior. Aorta: Thoracic aorta non-dilated. No evidence of dissection. No significant atherosclerotic changes. Bones: Unremarkable for age. Tubes, Catheters, and Lines: None. Soft tissues: Unremarkable. ABDOMEN and PELVIS: Liver: Normal size. Normal density. No suspicious measurable mass. Portal, Superior Mesenteric, and Splenic Veins: Unremarkable. Gallbladder and Biliary Tract: No radiodense calculus. No biliary dilatation. Pancreas: Normal density, no abnormal calcifications or inflammatory process. Spleen: Normal. Adrenals: Stable small low-density lesion of the left adrenal gland. Kidneys: Normal size, contour and axis. No radiodense stones. No obstructive uropathy. No masses seen. Vasculature: Abdominal aorta non-dilated. No evidence of dissection. Aday-[id number] stenosis at the origin of the SMA which appears grossly unchanged from prior. Celiac axis shows no significant stenosis. No significant stenosis involving the renal arteries, iliac arteries or visualized portions of the femoral arteries. Mild atherosclerotic changes of the lower abdominal aorta and proximal iliac arteries. Bowel: The stomach contains fluid and is mildly distended. No obstruction or bowel wall thickening. The small bowel and colon are unremarkable. Appendix is unremarkable. Peritoneal Cavity: No ascites, collection or mesenteric inflammatory response. Lymph Nodes: Within normal limits. Soft Tissues: Unremarkable. Bladder: Symmetric distention, no gross wall thickening. Reproductive Organs: Unremarkable as visualized. Bones: Unremarkable for age.. IMPRESSION: 1. No evidence of pulmonary embolism or aortic dissection. 2. Small pericardial effusion. 3. Dilated esophagus containing fluid and debris consistent with severe reflux, noted on prior exam. No evidence of small bowel dilatation. 4. Moderate stenosis at the origin of the SMA. 5. Stable low-density lesion of the left adrenal gland. 6. Stable mild mediastinal adenopathy. Pulmonary parenchyma suboptimally evaluated due to expiratory changes. Increased basilar densities could represent atelectasis versus pneumonitis. The preliminary [facility] report was reviewed. RADIATION DOSE DELIVERED: Total DLP Total DLP Total DLP DATA REPOSITORY: All CT scans at this facility are submitted to the National Radiology Data Registry (NRDR) Dose Index Registry (DIR) with the [employer] (ACR). RADIATION OPTIMIZATION: All CT scans at this facility use at least one of these dose optimization techniques: automated exposure control; mA and/or kV adjustment per patient size (includes targeted exams where dose is matched to clinical indication); or iterative reconstruction.
[2024-09-06] MEDS: MORPHine 4 MG/ML SYR IVP ×2 (00:45→01:54)
[2024-09-06 00:47] LABS: INR 1.1 (0.9-1.1); PTT Activated 25.7 sec (20.6-30.2); Prothrombin Time 10.7 sec (9.1-11.1)
[2024-09-06 01:10] LABS: ALT 17 U/L (16-63); AST 23 U/L (15-37); Albumin 4.1 g/dL (3.4-5.0); Alkaline Phosphatase 64 U/L (46-116); Anion Gap 14.1 mmol/L (3-11); BUN 19 mg/dL (7-18); Bilirubin, Total 0.3 mg/dL (0.2-1.0); CO2 23.9 mmol/L (21.0-32.0); Calcium 8.6 mg/dL (8.5-10.1); Chloride 102 mmol/L (98-107); Estimated GFR 80.77 (mL/min/1.73m2); Glucose 139 mg/dL (74-106); Lipase 26 U/L (<78); NT-proBNP 221 pg/mL (<300); Sodium 140 mmol/L (136-145); Total Protein 7.4 g/dL (6.4-8.2); Troponin I 21 ng/L (<or=76)
--- NOTE | 2024-09-06 01:15 | RT.EKG_ITS ---
APPROVED REPORT Exam: Resting ECG Reason for Exam: chest pain Patient Location: E HR:81 bpm ECG Measurements Heart Rate 81 AXIS HI 150 P 60 QRSd 86 QRS 44 QT 396 T 36 QTc 459 Conclusion Sinus rhythm...normal P axis, V-rate 60- 99 Anterolateral infarct, age indeterminate...Q >35mS, flat/neg T, V3-V6,I,aVL Physician: POSTERIOR EKG, no stemi
[2024-09-06 01:17] LABS: Potassium 2.9 mmol/L (3.5-5.1)
[2024-09-06] MEDS: POTASSIUM CHLORIDE 20 MEQ/100 ML BAG 50 MEQ IV_INF (01:32)
--- NOTE | 2024-09-06 01:40 | DI.[facility]_ITS ---
PROCEDURE INFORMATION: Exam: CTA Chest With Contrast CTA Abdomen and Pelvis With Contrast Exam date and time: 09/06/2024 12:22 AM Age: 54 years old Clinical indication: Right-sided; Right open chest pain, R/O dissection TECHNIQUE: Imaging protocol: Computed tomographic angiography of the chest with contrast. Exam focused on the arteries. Computed tomographic angiography of the abdomen and pelvis with contrast. Exam focused on the arteries. 3D rendering (Not supervised by radiologist): MIP and/or 3D reconstructed images were created by the technologist. Radiation optimization: All CT scans at this facility use at least one of these dose optimization techniques: automated exposure control; mA and/or kV adjustment per patient size (includes targeted exams where dose is matched to clinical indication); or iterative reconstruction. Contrast material: [id number]; Contrast volume: 100 ml; Contrast route: INTRAVENOUS (IV); COMPARISON: CT CHEST/ABD/PEL W 04/05/2024 3:11 PM FINDINGS: VASCULATURE: Pulmonary arteries: Normal. No pulmonary emboli. Aorta: No aortic aneurysm. No aortic dissection. Celiac trunk and mesenteric arteries: No stenosis celiac artery. 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 Renal arteries: No occlusion or significant stenosis. Right iliac arteries: No occlusion or significant stenosis. Left iliac arteries: No occlusion or significant stenosis. CHEST: Lungs: Mild peribronchiolar airspace disease and ground-glass opacities at the left upper and both lower lobes. Pleural spaces: Unremarkable. No pneumothorax. No pleural effusion. Heart: Small pericardial effusion. Coronary arteries: Mild atherosclerotic calcification coronary arteries. Esophagus: Moderate fluid distention of the mid and distal esophagus suggestive of reflux. ABDOMEN AND PELVIS: Liver: Nodular contour to the liver consistent with hepatocellular dysfunction/ cirrhosis. Gallbladder and biliary ducts: Unremarkable. No calcified stones. No ductal dilation. Pancreas: Unremarkable. No mass. No ductal dilation. Spleen: Unremarkable. No splenomegaly. Adrenal glands: Stable 2.4 cm indeterminate left adrenal nodule. Kidneys and ureters: Unremarkable. No solid mass. No hydronephrosis. Stomach and bowel: Unremarkable. No obstruction. No mucosal thickening. Appendix: No evidence of appendicitis. Intraperitoneal space: Unremarkable. No free air. No significant fluid collection. Urinary bladder: Unremarkable. No mass. Reproductive: Unremarkable as visualized. Lymph nodes: Prominent bilateral hilar and mediastinal nodes largest 2.6 x 1.7 cm. Bones/joints: Unremarkable. No acute fracture. Soft tissues: Unremarkable. IMPRESSION: 1. Small pericardial effusion. 2. Moderate fluid distention of the mid and distal esophagus suggestive of reflux. 3. No pulmonary embolism identified. 4. Prominent bilateral hilar and mediastinal nodes largest 2.6 x 1.7 cm. 5. 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 6. Mild peribronchiolar airspace disease and ground-glass opacities at the left upper and both lower lobes. 7. Nodular contour to the liver consistent with hepatocellular dysfunction/ cirrhosis. 8. Stable 2.4 cm indeterminate left adrenal nodule. Dictated and Authenticated by: Arslan Garcia MD. Orderin Hillary Arenas MD
[2024-09-06 01:44] LABS: Troponin I 20 ng/L (<or=76)
[2024-09-06] MEDS: Famotidine 20 MG/2 ML VIAL IVP (01:55)
[2024-09-06] MEDS: Pantoprazole 40 MG VIAL IVP (01:57)
[2024-09-06 03:40] LABS: Troponin I 16 ng/L (<or=76)
--- NOTE | 2024-09-06 04:00 | RT.EKG_ITS ---
APPROVED REPORT Exam: Resting ECG Reason for Exam: chest pain Patient Location: E HR:59 bpm ECG Measurements Heart Rate 59 AXIS IA 158 P 58 QRSd 102 QRS 62 QT 458 T 57 QTc 455 Conclusion Sinus bradycardia...rate< 60 Probable left atrial enlargement...P >50mS, <-0.10mV V1 I have reviewed and interpreted ECG and agree with software generated interpretation.
== END 2024-09-06 04:31 | disposition home or self-care (01) ==
PROVIDERS: Emergency Provider Student in an Organized Health Care Education/Training Program
DX: K20.90 Esophagitis, unspecified without bleeding (principal); R07.89 Other chest pain; J18.9 Pneumonia, unspecified organism; R00.0 Tachycardia, unspecified; I10 Essential (primary) hypertension; E78.00 Pure hypercholesterolemia, unspecified; I25.10 Atherosclerotic heart disease of native coronary artery without angina pectoris; I25.2 Old myocardial infarction; Z79.82 Long term (current) use of aspirin; Z87.891 Personal history of nicotine dependence
CPT/HCPCS: 71275; 76604; 80053; 82805; 83690; 93005; 93308; 94640; 96365; 96366; 96375; 96376; 99285; 74174; 83605; 83880; 84484; 85025; 85610; 85730; 93010; J2270; J2470; J3480; J3490

== ENCOUNTER 2024-11-23 18:38 | Emergency (ER) | payer OTHER, SELFPAY ==
[2024-11-23 18:39] VITALS: BP 135/73; PULSE 78; RESP 18; TEMP 37.2; O2SAT 95
--- NOTE | 2024-11-23 19:30 | DI.CT_ITS ---
Exam(s) CT LOWER EXTREMITY LT WO EXAM: CT LOWER EXTREMITY LT WO CLINICAL HISTORY: tender calf and difficult moving foot. TECHNIQUE: Imaging Protocol: Axial computed tomography images with coronal and sagittal reformatted images were created and reviewed. CONTRAST MATERIAL: Intravenous: Omnipaque 350 Contrast volume:structured data in ml Contrast route:IV - COMPARISON: No exams were available for comparison FINDINGS: Bones: There is no evidence of fracture or dislocation. No osteomyelitic changes are identified. No lytic or sclerotic lesions are identified. Joints: There is no significant joint space narrowing. No significant periarticular spurring. Soft Tissues: No evidence of intramuscular hematoma. Soft tissue swelling anterior to the patella. Small amount of edema is seen at the inferomedial aspect of the medial head of the gastrocnemius muscle. IMPRESSION: Mild soft tissue edema adjacent to the medial head of the gastrocnemius muscle and anterior to the patella. The preliminary [facility] report was reviewed. RADIATION DOSE DELIVERED: 202.16mGy.cm Total DLP DATA REPOSITORY: All CT scans at this facility are submitted to the National Radiology Data Registry (NRDR) Dose Index Registry (DIR) with the [employer] ([employer]). RADIATION OPTIMIZATION: All CT scans at this facility use at least one of these dose optimization techniques: automated exposure control; mA and/or kV adjustment per patient size (includes targeted exams where dose is matched to clinical indication); or iterative reconstruction.
--- NOTE | 2024-11-23 19:30 | W.ED.GENAD ---
Discharge Plan Disposition Patient Disposition: Home Condition: Stable Discharge Details Clinical Impression: Gastrocnemius muscle tear Primary Care Provider: Unknown,Unknown ED Provider: Hamzah Gunter Meds and New Rx's Prescriptions: New naproxen 375 mg tablet 375 mg PO BID PRNQty: 30 0RF Continued aspirin 81 mg capsule 81 mg PO DAILY atorvastatin [Lipitor] 20 mg tablet 20 mg PO DAILY Antacid Ext Str (calcium carb) 300 mg (750 mg) tablet,chewable 300 mg PO TID PRN hydroxychloroquine 200 mg tablet 200 mg PO DAILY Patient Comments: TAKE ONE TABLET BY MOUTH EVERY DAY omeprazole 40 mg capsule,delayed release(DR/EC) 40 mg PO DAILY Patient Comments: TAKE ONE CAPSULE BY MOUTH EVERY DAY gabapentin 300 mg capsule 300 mg PO TID Patient Comments: TAKE ONE CAPSULE BY MOUTH THREE TIMES A DAY quetiapine 100 mg tablet 100 mg PO DAILY PRN Patient Comments: TAKE ONE TABLET BY MOUTH AT BEDTIME DIRECTED quetiapine 50 mg tablet 50 mg PO DAILY Patient Comments: TAKE ONE TABLET BY MOUTH EVERY MORNING DIRECTED pantoprazole [Protonix] 40 mg tablet,delayed release (DR/EC) 40 mg PO DAILY Qty: 60 0RF sucralfate [Carafate] 1 gram tablet 1 g PO BID Qty: 60 0RF Discharge Instructions Instructions: Muscle Strain (DC), How to Use Crutches, Muscle Strain ED Discharge Data Discharge Physician: Hamzah Gunter HPI General Date/Time Provider Initiated Documentation: 11/23/24 18:59. HPI Narrative: Presents emergency department stating that he was playing volleyball started having pain in his left mid calf while he was running and is unable to move his foot. Denies any trauma reports just pain in the mid calf. Related Data Home Medications ?Medication ?Instructions ?Recorded ?Confirmed gabapentin 300 mg capsule 300 mg PO TID 12/11/23 11/23/24 hydroxychloroquine 200 mg tablet 200 mg PO DAILY 12/11/23 11/23/24 omeprazole 40 mg capsule,delayed 40 mg PO DAILY 12/11/23 11/23/24 release quetiapine 100 mg tablet 100 mg PO DAILY PRN 12/11/23 11/23/24 quetiapine 50 mg tablet 50 mg PO DAILY 12/11/23 11/23/24 aspirin 81 mg capsule 81 mg PO DAILY 06/05/24 11/23/24 atorvastatin 20 mg tablet (Lipitor) 20 mg PO DAILY 06/05/24 11/23/24 calcium carbonate (Antacid Ext Str 300 mg PO TID PRN 06/05/24 11/23/24 (calcium carb)) pantoprazole 40 mg tablet,delayed 40 mg PO DAILY #60 tabs 09/06/24 11/23/24 release (Protonix) sucralfate 1 gram tablet (Carafate) 1 g PO BID #60 tabs 09/06/24 11/23/24 naproxen 375 mg tablet 375 mg PO BID PRN #30 tabs 11/23/24 Previous Rx's ?Medication ?Instructions ?Recorded pantoprazole 40 mg tablet,delayed 40 mg PO DAILY #60 tabs 09/06/24 release (Protonix) sucralfate 1 gram tablet (Carafate) 1 g PO BID #60 tabs 09/06/24 naproxen 375 mg tablet 375 mg PO BID PRN #30 tabs 11/23/24 Allergies Allergy/AdvReac Type Severity Reaction Status Date / Time meloxicam Allergy Intermediate Unknown Verified 11/23/24 18:43 prednisone AdvReac Intermediate Other (See Verified 11/23/24 18:43 Comment) General Stated Complaint: Orthopedic SERGEY: 3 Review of Systems Narrative: Review of Systems: Constitutional: No fevers, chills, sweats Eye: No recent visual problems ENT: No ear pain, nasal congestion, sore throat Respiratory: No shortness of breath, cough Cardiovascular: No Chest pain, palpitations, syncope Gastrointestinal: No nausea, vomiting, diarrhea Genitourinary: No hematuria Dieudonne/Lymph: Negative for bruising tendency, swollen lymph glands Endocrine: Negative for excessive thirst, excessive hunger Musculoskeletal: No back pain, neck pain, joint pain, Integumentary: No rash, pruritus, abrasions Neurologic: Alert & oriented X 4 Psychiatric: No anxiety, depression Exam Narrative Exam Narrative: Exam; vitals signs as reported above normal Constitutional; In no acute distress, afebrile General: cooperative, healthy appearing, comfortable and no acute distress HEENT: Head: normal to inspection, no palpable skull fracture and normocephalic atraumatic Eyes: : appearance normal, both eyes and all related structures EOM intact bilaterally Pupils: PERRL : conjunctiva normal Direct ophthalmoscopy: normal light reflex, normal conjunctiva, normal visual acuity Ears: Normal TM, normal external canal Nose: normal no rhinorreha Neck no JVD, supple non tender Neck: normal visual inspection, full ROM and no lymphadenopathy Chest: normal inspection of the chest Respiratory : normal respiratory effort and able to speak in complete sentences no wheezing no rales Cardio Rate: regular rate, rhythm: regular rhythm normal heart sounds S1 and S2 no murmurs, gallops, or rubs GI : normal to inspection, normal bowel sounds, soft, non tender, non distended, no organomegaly Back/Spine/ no CVA tenderness Thoracic/Lumbar Spine: no tenderness or deformities Skin no rashes or lesions Neuro: patient alert oriented x 4 and no meningeal signs, Cranial Nerves: CN's II-XI intact bilaterally, Cognition: normal cognition, Speech: speech normal, Gait: normal gait, Depp tendon reflexes normal 2+ muscle strength 5/5 bilaterally Extremities, no edema, full range of motion, normal strength tenderness to palpation to the left mid calf but the Achilles tendon seems intact with good passive flexion and dorsiflexion Course Vital Signs Vital signs: Vital Signs Temperature 37.2 C 11/23/24 18:39 Pulse 78 11/23/24 18:39 Respiratory Rate 18 11/23/24 18:39 Blood Pressure 135/73 11/23/24 18:39 Pulse Oximetry 95 11/23/24 18:39 Temperature 37.2 C 11/23/24 18:39 Pulse 78 11/23/24 18:39 Respiratory Rate 18 11/23/24 18:39 Blood Pressure 135/73 11/23/24 18:39 Pulse Oximetry 95 11/23/24 18:39 Pain Level 10 11/23/24 19:07 Medical Decision Making MDM: Summary: Patient presents to the emergency department after he was playing volleyball with sudden onset of pain in his left proximal calf . He is able to flex and dorsiflex the foot and the Achilles tendon is intact CT scan of the left lower extremity without contrast performed showing mild Menopur anterior calf edema most likely could paddle with with a torn muscle fiber. He will be placed on crutches and will be discharged on Naprosyn Data Review Analysis All the data on this patient was reviewed by me including laboratory and imaging studies as well as bedside studies performed by me Independent review of Studies Imaging Lab: Risk Stratification: Patent with some muscle tear who will be discharged home Differential Diagnosis: 1. Muscle tear calf muscle 2. Achilles tendon tear 3. Hematoma 4. 5. Consultants: Shared disposition: Patient will be discharged back as an inmate and understands the disposition Impression: PFSH All Active Problems (Updated 11/23/24 @ 21:33 by Hamzah Gunter MD) Gastrocnemius muscle tear (Acute) Esophagitis (Acute) Medical History LVH (left ventricular hypertrophy) H/O testicular mass Hx of smoking ppd Polysubstance use disorder Chronic pain syndrome CAD (coronary artery disease) NSTEMI (non-ST elevated myocardial infarction) 2021 Mesothelioma GERD (gastroesophageal reflux disease) Insomnia Scleroderma HLD (hyperlipidemia) Surgical History History of esophagogastroduodenoscopy (~05/2024) History of orchiectomy, unilateral (L) H/O radiofrequency ablation (RFA) of nerve of lumbar spine H/O cardiac catheterization 2018 Social History Smoking/Tobacco Use Status: Former Tobacco Use Quit Date: 04/01/24 Smoking risk assessment performed?: Yes Alcohol Intake: never Drug use: Current Sobriety Substance use type: former substance user Housing: other Additional Social history: [facility]
--- NOTE | 2024-11-23 21:14 | DI.[facility]_ITS ---
PROCEDURE INFORMATION: Exam: CT Left Lower Extremity Without Contrast, Leg Exam date and time: 11/23/2024 7:45 PM Age: 54 years old Clinical indication: Other: Tender calf and difficult moving foot TECHNIQUE: Imaging protocol: CT of the left lower extremity without contrast was performed. Exam focused on the lower leg. COMPARISON: No relevant prior studies available. FINDINGS: Bones/joints: Trace knee joint effusion. No bony abnormality evident. Soft tissues: There is anterior calf skin edema. Cysts seen at the knee level as well in the peripatellar tissues. IMPRESSION: Mild knee and upper anterior calf edema. Cellulitis is a consideration. No drainable collection noted. Dictated and Authenticated by: Yari Yeh MD. Orderin Jani Goodson MD
[2024-11-23] MEDS: Ketorolac 30 MG/ML VIAL IM (21:45)
--- NOTE | 2024-11-26 09:14 | NUR.NOTE ---
Access chart to print the demographic sheet for [facility] billing requisition. Nursing Note:
== END 2024-11-23 21:50 | disposition home or self-care (01) ==
PROVIDERS: Emergency Provider Emergency Medicine Emergency Medical Services
DX: S86.112A Strain of other muscle(s) and tendon(s) of posterior muscle group at lower leg level, left leg, initial encounter (principal); Y93.68 Activity, volleyball (beach) (court)
CPT/HCPCS: 99284; 99283; 96372; 73700; J1885

== ENCOUNTER 2025-01-22 14:05 | Inpatient (IN) | payer MEDICAID, SELFPAY ==
[2025-01-22] VITALS (53 sets, daily range): BP systolic 100–167; BP diastolic 61–137; PULSE 54–80; RESP 12–23; TEMP 36.5; O2SAT 94–100
--- NOTE | 2025-01-22 13:45 | RT.EKG_ITS ---
APPROVED REPORT Exam: Resting ECG Reason for Exam: chest pain Patient Location: E HR:67 bpm ECG Measurements Heart Rate 67 AXIS OR 155 P 58 QRSd 88 QRS 90 QT 399 T 45 QTc 422 Conclusion Sinus rhythm...normal P axis, V-rate 60- 99 Probable left atrial enlargement...P >50mS, <-0.10mV V1 No STEMI
--- NOTE | 2025-01-22 14:00 | DI.RAD_ITS ---
Exam(s) XR CHEST 2V PA LATERAL EXAM: XR CHEST 2V PA LATERAL CLINICAL HISTORY: Chest pain TECHNIQUE: 2D digital imaging was performed. Two views. COMPARISON: CT CT THORAX ABD/PEL CTA from 09/06/2024 FINDINGS: HEART: Normal size. Aorta: Not dilated. PULMONARY VASCULATURE: Normal. MEDIASTINUM: Unremarkable. LUNGS: Clear. PLEURAL SPACE: No pleural effusion or pneumothorax. BONE:Unremarkable for age. SOFT TISSUES: Unremarkable. IMPRESSION: No acute abnormality. DATA REPOSITORY: RADIATION DOSE DELIVERED:
[2025-01-22 14:23] LABS: Abs Immature Grans 0.02 10^3/uL (0.0-0.06); HCT 39.5 % (40.0-50.0); HGB 12.0 g/dL (13.5-17.5); Immature Grans % 0.3 %; MCH 24.2 pg (27.0-33.0); MCHC 30.4 % (32.0-36.0); MCV 80 fL (80-95); MPV 9.0 fL (8.0-11.0); Platelet Count 333 10^3/uL (130-400); RBC 4.95 10^6/uL (4.36-5.78); WBC 7.75 10^3/uL (4.4-10.8)
[2025-01-22 14:43] LABS: Anisocytosis 2+; Lipase 35 U/L (<53)
[2025-01-22 14:44] LABS: Hypochromasia 1+; Magnesium 1.9 mg/dL (1.6-2.6); Microcytosis 2+
--- NOTE | 2025-01-22 14:44 | W.ED.GENAD ---
Discharge Plan Disposition Patient Disposition: Admit to [facility] Discharge Details Clinical Impression: Unstable angina Primary Care Provider: Evelia Frias ED Provider: Kan Zavala Home Meds and New Rx's Prescriptions: No Action aspirin 81 mg capsule 81 mg PO DAILY atorvastatin [Lipitor] 20 mg tablet 20 mg PO DAILY Antacid Ext Str (calcium carb) 300 mg (750 mg) tablet,chewable 300 mg PO TID PRN naproxen 375 mg tablet 375 mg PO BID PRNQty: 30 0RF hydroxychloroquine 200 mg tablet 200 mg PO DAILY Patient Comments: TAKE ONE TABLET BY MOUTH EVERY DAY omeprazole 40 mg capsule,delayed release(DR/EC) 40 mg PO DAILY Patient Comments: TAKE ONE CAPSULE BY MOUTH EVERY DAY gabapentin 300 mg capsule 300 mg PO TID Patient Comments: TAKE ONE CAPSULE BY MOUTH THREE TIMES A DAY quetiapine 100 mg tablet 100 mg PO DAILY PRN Patient Comments: TAKE ONE TABLET BY MOUTH AT BEDTIME DIRECTED quetiapine 50 mg tablet 50 mg PO DAILY Patient Comments: TAKE ONE TABLET BY MOUTH EVERY MORNING DIRECTED pantoprazole [Protonix] 40 mg tablet,delayed release (DR/EC) 40 mg PO DAILY Qty: 60 0RF sucralfate [Carafate] 1 gram tablet 1 g PO BID Qty: 60 0RF HPI General Date/Time Provider Initiated Documentation: 01/22/25 14:06. HPI Narrative: MDM/Narrative: 54-year-old male with past medical history of coronary artery disease, status post coronary stenting performed at [facility] in 2022, as well as a history of scleroderma and lupus, presents for evaluation of intermittent substernal chest pain. Patient notes that pain was relieved by nitro. He also notes that he has baseline angina which is improved by nitro, however this seems more severe. Given the patient's known pathology, high concern for possible acute coronary syndrome, will obtain EKG, troponins x 2, baseline blood work, chest x-ray. If initial workup is unrevealing will consider CT imaging of the chest to rule out other possible life-threatening causes of the patient's is PERC negative for PE, and is normotensive making an aortic dissection unlikely. ED course: Initial EKG shows no acute findings. Screening blood work notable for normal troponin, stable 1 hour delta. No leukocytosis, no other evidence of electrolyte derangement or organ dysfunction CMP. Patient reports persistent ongoing chest pain, treated again with sublingual nitro with no significant change in discomfort. Will trial of IV Ofirmev. However given initial screening labs EKG here patient persistent pain will obtain CTA to rule out dissection/PE. CTA results show no acute findings. Repeat EKG remains unchanged from prior this visit. Given persistent chest pain will obtain a third troponin level will continue to monitor. Third troponin negative CTA without acute findings. On reassessment patient notes persistent chest pain however noted significant proving from the last round of nitroglycerin sublingual. Trial patient on ambulatory pulse ox and had significant worsening chest pain while walking. Will discuss case with [facility] cardiology to determine further plan of care. [address] 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 transfer center contacted to [facility]. [address] Jensen of cardiology at who is in agreement with the plan for admission to his service once a bed is available most likely tomorrow. He recommends continuing daily aspirin for the patient however would hold Plavix, heparin drip and nitro drip unless patient develops EKG changes, or troponin elevations. Case discussed with Dr. Glover while the hospitalist is in agreement with plan for admission to [facility] with plan for transfer to [facility] when bed is available, likely tomorrow. Disposition: .admit to [facility] with plan to transfer when bed available at [facility] HPI: 54-year-old male with past medical history of coronary stenting performed 2022, scleroderma and lupus, presents for evaluation of substernal chest pain described as a severe pressure, which began approximately 330 this morning waking him from sleep, lasting seconds to minutes before spontaneously resolving. He notes that approximately 5 to similar episodes throughout the day today, when he was finally evaluated by his medical team at the [facility] facility and EMS arrived he was treated with aspirin 324 mg as well as 2 sublingual nitroglycerin with improvement of symptoms. Currently denies any severe pain but does note some constant chest pressure, notes associated shortness of breath, diaphoresis and nausea as well as dizziness when symptoms initially began. Does endorse that he has chronic angina, however it is unclear if it has been worsening recently although he states that he has been exercising [facility] the [facility] and notes he recently has to stop exercising due to the pain. ROS: Negative besides as mentioned above Exam: Gen: A&O NAD HEENT: NCAT, EOMI, not icteric. External ears normal. No rhinorrhea. Moist mucous membranes. Neck: Supple, full range of motion, no observable masses, No meningeal sign. Lungs: No Respiratory distress. CV: RRR, no edema. Abdomen: Soft, nondistended, No rebound tenderness. MSK: No joint swelling, no redness. Skin: No rashes, petechiae, lesions. Normal color per patient. Neuro: Normal Gait, Grossly intact. Psych: Appropriate for situation. Rhythm: NSR @1403 Rate: 67 [place]: Normal axis Intervals: Normal intervals Other findings: No acute ST segment or T wave changes to suggest acute ischemia. EKG #2 @ 1637 Rhythm: NSR Rate: 60 [place]: Normal axis Intervals: Normal intervals Other findings: No acute ST segment or T wave changes to suggest acute ischemia. Labs: Laboratory Tests Range/Units 01/22/25 01/22/25 01/22/25 14:14 15:27 17:10 WBC (4.4-10.8) 10^3/uL 7.75 RBC (4.36-5.78) 10^6/uL 4.95 Hgb (13.5-17.5) g/dL 12.0 L Hct (40.0-50.0) % 39.5 L MCV (80-95) fL 80 MCH (27.0-33.0) pg 24.2 L MCHC (32.0-36.0) % 30.4 L RDW (11.8-14.1) % Plt Count (130-400) 10^3/uL 333 MPV (8.0-11.0) fL 9.0 Immature Gran % % 0.3 Neutrophils % % 47.8 Lymphocytes % % 31.4 Monocytes % % 9.8 Eosinophils % % 9.4 Basophils % % 1.3 Nucleated RBC % (0.0-0.3) % 0.0 Absolute Neutrophils (1.2-6.7) 10^3/uL 3.71 Absolute Lymphocytes (1.2-3.4) 10^3/uL 2.43 Absolute Monocytes (0.1-0.8) 10^3/uL 0.76 Absolute Eosinophils (0.0-0.7) 10^3/uL 0.73 H Absolute Basophils (0.0-0.2) 10^3/uL 0.10 RBC Morphology See Below Hypochromasia 1+ Anisocytosis 2+ Microcytosis 2+ Sodium (136-145) mmol/L 143 Potassium (3.5-5.1) mmol/L 4.1 Chloride (98-107) mmol/L 106 Carbon Dioxide (20.0-31.0) mmol/L 27.7 Anion Gap (3-11) mmol/L 9.3 BUN (9-23) mg/dL 20 Creatinine (0.73-1.18) mg/dL 1.01 Est GFR (CKD-EPI 2020) (mL/min/1.73m2) 77.42 Glucose (74-106) mg/dL 93 Calcium (8.3-10.6) mg/dL 9.1 Magnesium (1.6-2.6) mg/dL 1.9 Total Bilirubin (0.2-1.2) mg/dL 0.3 AST (<34) U/L 24 ALT (10-49) U/L 15 Alkaline Phosphatase (46-116) U/L 60 Troponin I (<54) ng/L 8 7 8 NT-Pro-B Natriuret Pep (<300) pg/mL 208 Total Protein (5.7-8.2) g/dL 7.4 Albumin (3.2-5.0) g/dL 4.5 Lipase (<53) U/L 35 Radiology: Accession No. : [id number] Creator : Fercho Ortiz Dictator : Fercho Ortiz Public Relations Player : Water Purifier Operator : Fercho Ortiz Approver2 : Report Date : 01/22/2025 17:33:04 Exam(s) CT THORAX ABD/PEL CTA EXAM: CT THORAX ABD/PEL CTA CLINICAL HISTORY: chest pain radiaitng to back. TECHNIQUE: Imaging Protocol: Axial computed tomography images with coronal and sagittal reformatted images were created and reviewed CONTRAST MATERIAL: Intravenous: Omnipaque 350 Contrast volume:80 mL Oral: s COMPARISON: CT CT THORAX ABD/PEL CTA from 09/06/2024 FINDINGS: CHEST: AORTA: The diameter of the ascending thoracic aorta is within normal limits. Diameter of the aortic arch and descending thoracic aorta are also within normal limits. There is no evidence of aortic dissection. There is no evidence of abdominal aortic aneurysm nor dissection. There is some atherosclerotic involvement of the inferior half of the abdominal aorta as well as the iliac arteries but there is no high-grade stenosis nor aneurysms. Common femoral arteries as well as the proximal SFA arteries are also patent. There is no significant stenosis in the celiac and SMA arteries. The inferior mesenteric artery is patent. There is no significant stenosis in the renal arteries. LUNGS: No infiltrates nor pleural effusions evident. There is a solitary noncalcified nodule in the posterior basal segment of the left lower lobe which measures 6 mm and will require follow-up. This is just above the left hemidiaphragm.. MEDIASTINUM: There are few slightly enlarged lymph nodes in both hilar regions as well as mild enlargement of lymph nodes in the pretracheal region. Slightly prominent subcarinal lymph nodes also noted. The esophagus is slightly dilated and contains some material. There is no prominent hiatal hernia. No obvious mass at the GE junction. CARDIAC: Heart size is upper normal. There is mild thickening of the inferior aspect of the pericardium with maximum thickness anteriorly measuring 9 mm consistent with small pericardial effusion. There is no shift of the interventricular septum. ABDOMEN: There is no ascites. LIVER: There are no focal hepatic lesions nor dilatation of intrahepatic ducts. GALLBLADDER/BILIARY: Gallbladder is moderately contracted. No acute findings in the gallbladder. CBD is not dilated. PANCREAS: No evidence of pancreatic mass nor dilatation of the pancreatic duct. SPLEEN: Spleen is not enlarged. There are no intrasplenic lesions. Splenic and portal veins are patent. ADRENALS: There is a nodule in the left adrenal gland which measures 2.4 by 1.9 cm in the centrally hypodense and unchanged from CT scan of 09/06/2024. The right adrenal gland remains unremarkable. KIDNEYS: No cysts evident. No calculi nor hydronephrosis. No solid renal masses. Ureters are not dilated. The urinary bladder is distended, measuring 14 x 8 x 10 cm. There are no focal findings in the bladder. The prostate gland is not significantly enlarged. Seminal vesicles unremarkable. Pelvic ureters are not dilated. ABDOMINAL AORTA: The abdominal aorta is not enlarged. LYMPH NODES: There is no retroperitoneal nor para-aortic adenopathy. No obvious mesenteric masses. ABDOMINAL WALL: No evidence of significant anterior abdominal wall hernia. GI: There is no evidence of bowel obstruction, free air, nor abscess.No evidence of appendicitis. PELVIS: LYMPH NODES: There is no intrapelvic nor inguinal adenopathy. GI: No evidence of appendicitis.Redundant sigmoid. No evidence of acute diverticulitis. URINARY BLADDER: As above REPRODUCTIVE: Prostate gland is not enlarged. Seminal vesicles appear unremarkable. OSSEOUS: No fractures and no significant osseous lesions evident. IMPRESSION: 1. No evidence of aortic aneurysm nor aortic dissection, as per request. 2. Small pericardial effusion again noted, unchanged from 09/06/2024.. 2. Dilated esophagus. Apparently there is a history of scleroderma here. There is no evidence of obvious interstitial lung disease and there is no evidence of aspiration pneumonia. 3. Subtle 6 mm nodule in left lower lobe just above the hemidiaphragm appears unchanged. No additional nodules evident. No pleural effusions. 4. Stable left adrenal nodule. 5. Moderate distension of the urinary bladder. There is no hydronephrosis nor hydroureter. Report called by myself to ER physician 01/22/2025 at 5:28 p.m. RADIATION DOSE DELIVERED: 610.54mGy.cm Total DLP DATA REPOSITORY: All CT scans at this facility are submitted to the National Radiology Data Registry (NRDR) Dose Index Registry (DIR) with the [employer] (ACR). RADIATION OPTIMIZATION: All CT scans at this facility use at least one of these dose optimization techniques: automated exposure control; mA and/or kV adjustment per patient size (includes targeted exams where dose is matched to clinical indication); or iterative reconstruction. Related Data Home Medications ?Medication ?Instructions ?Recorded ?Confirmed gabapentin 300 mg capsule 300 mg PO TID 12/11/23 01/22/25 hydroxychloroquine 200 mg tablet 200 mg PO DAILY 12/11/23 01/22/25 omeprazole 40 mg capsule,delayed 40 mg PO DAILY 12/11/23 01/22/25 release quetiapine 100 mg tablet 100 mg PO DAILY PRN 12/11/23 01/22/25 quetiapine 50 mg tablet 50 mg PO DAILY 12/11/23 01/22/25 aspirin 81 mg capsule 81 mg PO DAILY 06/05/24 01/22/25 atorvastatin 20 mg tablet (Lipitor) 20 mg PO DAILY 06/05/24 01/22/25 calcium carbonate (Antacid Ext Str 300 mg PO TID PRN 06/05/24 01/22/25 (calcium carb)) pantoprazole 40 mg tablet,delayed 40 mg PO DAILY #60 tabs 09/06/24 01/22/25 release (Protonix) sucralfate 1 gram tablet (Carafate) 1 g PO BID #60 tabs 09/06/24 01/22/25 naproxen 375 mg tablet 375 mg PO BID PRN #30 tabs 11/23/24 01/22/25 Previous Rx's ?Medication ?Instructions ?Recorded pantoprazole 40 mg tablet,delayed 40 mg PO DAILY #60 tabs 09/06/24 release (Protonix) sucralfate 1 gram tablet (Carafate) 1 g PO BID #60 tabs 09/06/24 naproxen 375 mg tablet 375 mg PO BID PRN #30 tabs 11/23/24 Allergies Allergy/AdvReac Type Severity Reaction Status Date / Time meloxicam Allergy Intermediate Unknown Verified 01/22/25 14:07 prednisone AdvReac Intermediate Other (See Verified 01/22/25 14:07 Comment) General Stated Complaint: Chest Pain SERGEY: 3 Course Vital Signs Vital signs: Vital Signs Pulse 63 01/22/25 14:01 Respiratory Rate 18 01/22/25 14:01 Blood Pressure 116/75 01/22/25 14:01 Pulse Oximetry 97 01/22/25 14:01 Pulse 63 01/22/25 14:01 Respiratory Rate 20 01/22/25 14:21 Respiratory Effort Normal 01/22/25 14:21 Respiratory Depth Normal 01/22/25 14:21 Respiratory Pattern Normal 01/22/25 14:21 Blood Pressure 116/75 01/22/25 14:01 Pulse Oximetry 97 01/22/25 14:18 Pain Level 6 01/22/25 14:21 Lab/Test Results Lab/Test Results: Laboratory Tests Range/Units 01/22/25 14:14 Lipase (<53) U/L 35 PFSH All Active Problems (Updated 01/22/25 @ 22:06 by Kan Zavala MD) Unstable angina (Acute) Esophagitis (Acute) Medical History LVH (left ventricular hypertrophy) H/O testicular mass Hx of smoking ppd Polysubstance use disorder Chronic pain syndrome CAD (coronary artery disease) NSTEMI (non-ST elevated myocardial infarction) 2021 Mesothelioma GERD (gastroesophageal reflux disease) Insomnia Scleroderma HLD (hyperlipidemia) Surgical History History of esophagogastroduodenoscopy (~05/2024) History of orchiectomy, unilateral (L) H/O radiofrequency ablation (RFA) of nerve of lumbar spine H/O cardiac catheterization 2018 Social History Smoking/Tobacco Use Status: Former Tobacco Use Quit Date: 04/01/24 Smoking risk assessment performed?: Yes Alcohol Intake: never Drug use: Current Sobriety Substance use type: former substance user Housing: other Additional Social history: [facility]
[2025-01-22 14:45] LABS: Troponin I 8 ng/L (<54)
[2025-01-22 14:46] LABS: ALT 15 U/L (10-49); AST 24 U/L (<34); Albumin 4.5 g/dL (3.2-5.0); Alkaline Phosphatase 60 U/L (46-116); Anion Gap 9.3 mmol/L (3-11); BUN 20 mg/dL (9-23); Bilirubin, Total 0.3 mg/dL (0.2-1.2); CO2 27.7 mmol/L (20.0-31.0); Calcium 9.1 mg/dL (8.3-10.6); Chloride 106 mmol/L (98-107); Glucose 93 mg/dL (74-106); Potassium 4.1 mmol/L (3.5-5.1); Sodium 143 mmol/L (136-145); Total Protein 7.4 g/dL (5.7-8.2)
[2025-01-22] MEDS: nitroGLYcerin 0.4 MG TAB SL ×3 (14:51→17:03)
[2025-01-22] MEDS: MYLANTA 30 ML, LIDOCAINE 2% VISCOUS UD 15 ML PO (15:34)
[2025-01-22 15:48] LABS: Troponin I 7 ng/L (<54)
--- NOTE | 2025-01-22 16:15 | DI.CT_ITS ---
Exam(s) CT THORAX ABD/PEL CTA EXAM: CT THORAX ABD/PEL CTA CLINICAL HISTORY: chest pain radiaitng to back. TECHNIQUE: Imaging Protocol: Axial computed tomography images with coronal and sagittal reformatted images were created and reviewed CONTRAST MATERIAL: Intravenous: Omnipaque 350 Contrast volume:80 mL Oral: s COMPARISON: CT CT THORAX ABD/PEL CTA from 09/06/2024 FINDINGS: CHEST: AORTA: The diameter of the ascending thoracic aorta is within normal limits. Diameter of the aortic arch and descending thoracic aorta are also within normal limits. There is no evidence of aortic dissection. There is no evidence of abdominal aortic aneurysm nor dissection. There is some atherosclerotic involvement of the inferior half of the abdominal aorta as well as the iliac arteries but there is no high-grade stenosis nor aneurysms. Common femoral arteries as well as the proximal SFA arteries are also patent. There is no significant stenosis in the celiac and SMA arteries. The inferior mesenteric artery is patent. There is no significant stenosis in the renal arteries. LUNGS: No infiltrates nor pleural effusions evident. There is a solitary noncalcified nodule in the posterior basal segment of the left lower lobe which measures 6 mm and will require follow-up. This is just above the left hemidiaphragm.. MEDIASTINUM: There are few slightly enlarged lymph nodes in both hilar regions as well as mild enlargement of lymph nodes in the pretracheal region. Slightly prominent subcarinal lymph nodes also noted. The esophagus is slightly dilated and contains some material. There is no prominent hiatal hernia. No obvious mass at the GE junction. CARDIAC: Heart size is upper normal. There is mild thickening of the inferior aspect of the pericardium with maximum thickness anteriorly measuring 9 mm consistent with small pericardial effusion. There is no shift of the interventricular septum. ABDOMEN: There is no ascites. LIVER: There are no focal hepatic lesions nor dilatation of intrahepatic ducts. GALLBLADDER/BILIARY: Gallbladder is moderately contracted. No acute findings in the gallbladder. CBD is not dilated. PANCREAS: No evidence of pancreatic mass nor dilatation of the pancreatic duct. SPLEEN: Spleen is not enlarged. There are no intrasplenic lesions. Splenic and portal veins are patent. ADRENALS: There is a nodule in the left adrenal gland which measures 2.4 by 1.9 cm in the centrally hypodense and unchanged from CT scan of 09/06/2024. The right adrenal gland remains unremarkable. KIDNEYS: No cysts evident. No calculi nor hydronephrosis. No solid renal masses. Ureters are not dilated. The urinary bladder is distended, measuring 14 x 8 x 10 cm. There are no focal findings in the bladder. The prostate gland is not significantly enlarged. Seminal vesicles unremarkable. Pelvic ureters are not dilated. ABDOMINAL AORTA: The abdominal aorta is not enlarged. LYMPH NODES: There is no retroperitoneal nor para-aortic adenopathy. No obvious mesenteric masses. ABDOMINAL WALL: No evidence of significant anterior abdominal wall hernia. GI: There is no evidence of bowel obstruction, free air, nor abscess.No evidence of appendicitis. PELVIS: LYMPH NODES: There is no intrapelvic nor inguinal adenopathy. GI: No evidence of appendicitis.Redundant sigmoid. No evidence of acute diverticulitis. URINARY BLADDER: As above REPRODUCTIVE: Prostate gland is not enlarged. Seminal vesicles appear unremarkable. OSSEOUS: No fractures and no significant osseous lesions evident. IMPRESSION: 1. No evidence of aortic aneurysm nor aortic dissection, as per request. 2. Small pericardial effusion again noted, unchanged from 09/06/2024.. 2. Dilated esophagus. Apparently there is a history of scleroderma here. There is no evidence of obvious interstitial lung disease and there is no evidence of aspiration pneumonia. 3. Subtle 6 mm nodule in left lower lobe just above the hemidiaphragm appears unchanged. No additional nodules evident. No pleural effusions. 4. Stable left adrenal nodule. 5. Moderate distension of the urinary bladder. There is no hydronephrosis nor hydroureter. Report called by myself to ER physician 01/22/2025 at 5:28 p.m. RADIATION DOSE DELIVERED: 610.54mGy.cm Total DLP DATA REPOSITORY: All CT scans at this facility are submitted to the National Radiology Data Registry (NRDR) Dose Index Registry (DIR) with the [employer] (ACR). RADIATION OPTIMIZATION: All CT scans at this facility use at least one of these dose optimization techniques: automated exposure control; mA and/or kV adjustment per patient size (includes targeted exams where dose is matched to clinical indication); or iterative reconstruction.
--- NOTE | 2025-01-22 16:15 | RT.EKG_ITS ---
APPROVED REPORT Exam: Resting ECG Reason for Exam: persistent chest pain Patient Location: E HR:60 bpm ECG Measurements Heart Rate 60 AXIS NJ 157 P 62 QRSd 107 QRS 83 QT 432 T 58 QTc 430 Conclusion Sinus rhythm...normal P axis, V-rate 60- 99 Inferolateral infarct, old...Q >40mS, inf-lat leads No STEMI
[2025-01-22] MEDS: Normal Saline - Diluent 50 ML VIAL IJ (16:28)
[2025-01-22] MEDS: Omnipaque 350 MG/ML 100 ML BTL IJ (16:28)
[2025-01-22] MEDS: ACETAMINOPHEN 1,000 MG/100 ML BAG 400 MG IVPB (17:01)
[2025-01-22 17:41] LABS: Troponin I 8 ng/L (<54)
--- NOTE | 2025-01-22 20:53 | W.PM.HP.N ---
Date of service: 01/22/25 Time of Service: 20:53 Assessment and Plan Assessment and plan (1) Unstable angina: Start date: 01/22/25 Status: Acute Assessment and plan: This is a 54-year-old gentleman with a history of cocaine use in the past and multiple cardiac catheterizations the patient stating he was stented with his first catheterization in 2019 and have a history of non-STEMI with slightly elevated troponins in the past according to cardiology at [facility]. Cardiology at [facility] did not mention that he had previous stenting. This need to be clarified with record review. He was awakened with chest pain response with nitroglycerin sublingually and has a history of intermittent chest pain in the past after his cardiac catheterization but not on nitroglycerin sublingually in the present. He did respond to nitroglycerin and will be treated as unstable angina petrous without initiation of heparin infusion with his pain resolved with morphine additionally and topical Nitropaste. Dr. Johnson at [facility] is excepting the physician in transfer for reevaluation. Troponins have been negative and there are no acute EKG changes presently. Continue trending troponins and consider IV heparin infusion if chest pain is not respond to nitroglycerin sublingually. His atorvastatin will be maximized, daily aspirin will be continued and we will attempt low-dose metoprolol though this may be limited by his pulse being bradycardic. He is a full code. (2) NSTEMI (non-ST elevated myocardial infarction): Assessment and plan: Patient has a history of non-STEMI which was marginal according to [facility] cardiology. According to [facility] cardiology he has had multiple coronary catheterizations which were negative but patient states he did have a stent placed with his first cardiac catheterization in 2019. Continue trending troponins and monitoring while treating for unstable angina with topical nitroglycerin and IV morphine which appears to be effective. (3) Polysubstance use disorder: Assessment and plan: Patient has a history of polysubstance use in the past with cocaine which is significant. Check urine drug screen. PDMP does reveal previous Suboxone use in 2023 the patient not on chronic opioid suppression presently. (4) HLD (hyperlipidemia): Assessment and plan: Maximize Lipitor 80 mg daily. Initiate dose now. (5) Scleroderma: Assessment and plan: Patient has a history of lupus on Plaquenil but has no specific therapy for scleroderma other than previous EGD for stricture. Continue Plaquenil with no specific treatment for scleroderma. History of Present Illness History of Present Illness Chief Complaint: Sudden onset resting retrosternal chest pain responsive to nitroglycerin. Narrative: This is a 54-year-old male patient who is incarcerated locally awakened at 3 AM the day of admission with deep retrosternal chest pain in the middle but more toward the back which was not ripping but pressure-like pain with associated nausea, dyspnea and diaphoresis as well as slight dizziness which spontaneously resolved. He had several stuttering episodes of similar chest pain but less severe during the day and finally was evaluated by the medical team at the present. EMS was called and he was given nitroglycerin x 2 which almost resolved his chest pain at the time he was seen with full dose aspirin given though he is on daily aspirin because of chronic CAD and previous episodes. He did have chest pain with exertion more often in the recent past when he was trying to exercise. The patient does have scleroderma. Previous esophageal dysfunction status post EGD and systemic lupus erythematosus on Plaquenil as well as history of substance use disorder with cocaine use in the past. He did have a cardiac catheterization in 2018 shortly after he had surgery for left testicle mesothelioma. Patient states he received a stent in his right coronary artery at that time. He had a repeat cardiac catheterization [address] Johnson, cardiology at [facility] states that he has had several cardiac catheterizations with clean coronaries with no mention of being stented in the past. Dr. Johnson also mentioned the patient had been using cocaine in the past. The patient is a vague historian and at the time I saw him he stated he was having some residual chest discomfort. I did review discussed the case with Dr. Johnson who was an accepting physician for the patient for diagnosis of unstable angina petrous, because his initial recommendations were to not heparinize and not give Plavix. He wanted his baseline baby aspirin to be given along with repeat sublingual nitroglycerin as needed. Dr. Johnson did agree that we should try to have his pain resolved totally and I advanced his atorvastatin to 80 mg daily, attempted low-dose metoprolol 12.5 mg every 6 hours as tolerated along with Nitropaste topically and continuing nitroglycerin sublingually as needed. If his pain did not resolve we would initiate heparin infusion and/or nitroglycerin drip though patient was having bradycardia and was not severely hypotensive. As stated he is a vague historian. He did seem to improve with Nitropaste and morphine IV. Urine drug screen was pending to review for cocaine use in the present. He has a full code. Review of Systems Narrative: 13 point review systems otherwise unrevealing or stable. Patient is a vague historian. His chest pain did initiate with resting chest pain this admission which is atypical for angina pectoris. PFSH All Active Problems Unstable angina (Acute) Esophagitis (Acute) Medical History LVH (left ventricular hypertrophy) H/O testicular mass Hx of smoking ppd Polysubstance use disorder Chronic pain syndrome CAD (coronary artery disease) NSTEMI (non-ST elevated myocardial infarction) 2021 Mesothelioma GERD (gastroesophageal reflux disease) Insomnia Scleroderma HLD (hyperlipidemia) Surgical History History of esophagogastroduodenoscopy (~05/2024) History of orchiectomy, unilateral (L) H/O radiofrequency ablation (RFA) of nerve of lumbar spine H/O cardiac catheterization 2018 Social History Smoking/Tobacco Use Status: Former Tobacco Use Quit Date: 04/01/24 Smoking risk assessment performed?: Yes Alcohol Intake: never Drug use: Current Sobriety Substance use type: former substance user Housing: house Additional Social history: [facility] Meds Allergies and Home Medications Allergies Allergy/AdvReac Type Severity Reaction Status Date / Time meloxicam Allergy Intermediate Unknown Verified 01/22/25 14:07 prednisone AdvReac Intermediate Other (See Verified 01/22/25 14:07 Comment) Home Medications ?Medication ?Instructions ?Recorded ?Confirmed ?Type gabapentin 300 mg capsule 300 mg PO TID 12/11/23 01/22/25 History hydroxychloroquine 200 mg tablet 200 mg PO DAILY 12/11/23 01/22/25 History omeprazole 40 mg capsule,delayed 40 mg PO DAILY 12/11/23 01/22/25 History release quetiapine 100 mg tablet 100 mg PO DAILY PRN 12/11/23 01/22/25 History quetiapine 50 mg tablet 50 mg PO DAILY 12/11/23 01/22/25 History aspirin 81 mg capsule 81 mg PO DAILY 06/05/24 01/22/25 History atorvastatin 20 mg tablet (Lipitor) 20 mg PO DAILY 06/05/24 01/22/25 History calcium carbonate (Antacid Ext Str 300 mg PO TID PRN 06/05/24 01/22/25 History (calcium carb)) pantoprazole 40 mg tablet,delayed 40 mg PO DAILY #60 tabs 09/06/24 01/22/25 Rx release (Protonix) sucralfate 1 gram tablet (Carafate) 1 g PO BID #60 tabs 09/06/24 01/22/25 Rx naproxen 375 mg tablet 375 mg PO BID PRN #30 tabs 11/23/24 01/22/25 Rx Exam Narrative Exam Narrative: General: Patient appears appropriate age, thinly built, alert and oriented x 3 and in no acute distress. Has a flattened affect with poor eye contact. HEENT: Normocephalic, eyes with pupils equal and reactive to light symmetrically, extraocular movement intact and sclera anicteric. Oropharynx moist mucosa and poor dentition with fractured and missing teeth as well as discolored teeth. No gingival swelling or bleeding. Neck: Supple without JVD. Back: Normal posture without CVA tenderness. Lungs: Fair aeration and clear to auscultation percussion with no focalizing rales or rhonchi and no expiratory wheeze. Heart: Bradycardic rate and regular rhythm with no murmurs or gallops appreciated. Abdomen: Normal contour with no guarding or rebound to palpation, soft with no focalizing tenderness. No palpable hepatosplenomegaly and no Paige sign. Bowel sounds positive all quadrants. Genitalia/rectal: Exam deferred. Patient has a left orchiectomy by history. Extremities: Without clubbing, cyanosis or pitting edema, fair cap refill. Skin: Darkly tanned, lack of elasticity to palpation over extremities especially with history of scleroderma. Neuro: Cranial nerves II through XII gross intact, no focalizing motor deficits and no tremor. Psych: Flattened affect with depressed mood. Slightly anxious. No abnormal thought processes. Remote and recent memory grossly intact. Results Imaging Imaging Studies: EXAM: CT THORAX ABD/PEL CTA Date of exam: 01/22/2025 CLINICAL HISTORY: chest pain radiaitng to back. TECHNIQUE: Imaging Protocol: Axial computed tomography images with coronal and sagittal reformatted images were created and reviewed CONTRAST MATERIAL: Intravenous: Omnipaque 350 Contrast volume:80 mL Oral: COMPARISON: CT CT THORAX ABD/PEL CTA from 09/06/2024 FINDINGS: CHEST: AORTA: The diameter of the ascending thoracic aorta is within normal limits. Diameter of the aortic arch and descending thoracic aorta are also within normal limits. There is no evidence of aortic dissection. There is no evidence of abdominal aortic aneurysm nor dissection. There is some atherosclerotic involvement of the inferior half of the abdominal aorta as well as the iliac arteries but there is no high-grade stenosis nor aneurysms. Common femoral arteries as well as the proximal SFA arteries are also patent. There is no significant stenosis in the celiac and SMA arteries. The inferior mesenteric artery is patent. There is no significant stenosis in the renal arteries. LUNGS: No infiltrates nor pleural effusions evident. There is a solitary noncalcified nodule in the posterior basal segment of the left lower lobe which measures 6 mm and will require follow-up. This is just above the left hemidiaphragm.. MEDIASTINUM: There are few slightly enlarged lymph nodes in both hilar regions as well as mild enlargement of lymph nodes in the pretracheal region. Slightly prominent subcarinal lymph nodes also noted. The esophagus is slightly dilated and contains some material. There is no prominent hiatal hernia. No obvious mass at the GE junction. CARDIAC: Heart size is upper normal. There is mild thickening of the inferior aspect of the pericardium with maximum thickness anteriorly measuring 9 mm consistent with small pericardial effusion. There is no shift of the interventricular septum. ABDOMEN: There is no ascites. LIVER: There are no focal hepatic lesions nor dilatation of intrahepatic ducts. GALLBLADDER/BILIARY: Gallbladder is moderately contracted. No acute findings in the gallbladder. CBD is not dilated. PANCREAS: No evidence of pancreatic mass nor dilatation of the pancreatic duct. SPLEEN: Spleen is not enlarged. There are no intrasplenic lesions. Splenic and portal veins are patent. ADRENALS: There is a nodule in the left adrenal gland which measures 2.4 by 1.9 cm in the centrally hypodense and unchanged from CT scan of 09/06/2024. The right adrenal gland remains unremarkable. KIDNEYS: No cysts evident. No calculi nor hydronephrosis. No solid renal masses. Ureters are not dilated. The urinary bladder is distended, measuring 14 x 8 x 10 cm. There are no focal findings in the bladder. The prostate gland is not significantly enlarged. Seminal vesicles unremarkable. Pelvic ureters are not dilated. ABDOMINAL AORTA: The abdominal aorta is not enlarged. LYMPH NODES: There is no retroperitoneal nor para-aortic adenopathy. No obvious mesenteric masses. ABDOMINAL WALL: No evidence of significant anterior abdominal wall hernia. GI: There is no evidence of bowel obstruction, free air, nor abscess.No evidence of appendicitis. PELVIS: LYMPH NODES: There is no intrapelvic nor inguinal adenopathy. GI: No evidence of appendicitis.Redundant sigmoid. No evidence of acute diverticulitis. URINARY BLADDER: As above REPRODUCTIVE: Prostate gland is not enlarged. Seminal vesicles appear unremarkable. OSSEOUS: No fractures and no significant osseous lesions evident. IMPRESSION: 1. No evidence of aortic aneurysm nor aortic dissection, as per request. 2. Small pericardial effusion again noted, unchanged from 09/06/2024.. 2. Dilated esophagus. Apparently there is a history of scleroderma here. There is no evidence of obvious interstitial lung disease and there is no evidence of aspiration pneumonia. 3. Subtle 6 mm nodule in left lower lobe just above the hemidiaphragm appears unchanged. No additional nodules evident. No pleural effusions. 4. Stable left adrenal nodule. 5. Moderate distension of the urinary bladder. There is no hydronephrosis nor hydroureter. EXAM: XR CHEST 2V PA LATERAL Date of exam: 01/22/2025 CLINICAL HISTORY: Chest pain TECHNIQUE: 2D digital imaging was performed. Two views. COMPARISON: CT CT THORAX ABD/PEL CTA from 09/06/2024 FINDINGS: HEART: Normal size. Aorta: Not dilated. PULMONARY VASCULATURE: Normal. MEDIASTINUM: Unremarkable. LUNGS: Clear. PLEURAL SPACE: No pleural effusion or pneumothorax. BONE:Unremarkable for age. SOFT TISSUES: Unremarkable. IMPRESSION: No acute abnormality. Labs 01/22/25 14:14 01/22/25 14:14 Labs: Laboratory Results - last 24 hr 01/22/25 01/22/25 01/22/25 14:14 15:27 17:10 WBC 7.75 RBC 4.95 Hgb 12.0 L Hct 39.5 L MCV 80 MCH 24.2 L MCHC 30.4 L RDW Plt Count 333 MPV 9.0 Immature Gran % 0.3 Neutrophils % 47.8 Lymphocytes % 31.4 Monocytes % 9.8 Eosinophils % 9.4 Basophils % 1.3 Nucleated RBC % 0.0 Absolute Neutrophils 3.71 Absolute Lymphocytes 2.43 Absolute Monocytes 0.76 Absolute Eosinophils 0.73 H Absolute Basophils 0.10 RBC Morphology See Below Hypochromasia 1+ Anisocytosis 2+ Microcytosis 2+ Sodium 143 Potassium 4.1 Chloride 106 Carbon Dioxide 27.7 Anion Gap 9.3 BUN 20 Creatinine 1.01 Est GFR (CKD-EPI 2020) 77.42 Glucose 93 Calcium 9.1 Magnesium 1.9 Total Bilirubin 0.3 AST 24 ALT 15 Alkaline Phosphatase 60 Troponin I 8 7 8 NT-Pro-B Natriuret Pep 208 Total Protein 7.4 Albumin 4.5 Lipase 35 Last Vital Signs Pulse 56 L 01/22/25 20:10 Resp 18 01/22/25 20:10 BP 115/85 01/22/25 18:52 Pulse Ox 100 01/22/25 18:52 VTE Prohylaxis Risk Level: Moderate/High Risk Contraindications: None Prophylaxis: Pharmacologic and Mechanical Time Spent Time spent with Patient: >75 minutes Time was spent: preparing to see the patient(eg.review tests), obtaining and/or reviewing separately otained hiistory, ordering medications,tests, procedures, referring, communicating with other health social worker palliative care, indepentently interpreting results and care coordination
[2025-01-22] MEDS: Omeprazole 20 MG CAPCR 40 MG PO (21:47)
[2025-01-22 22:21] LABS: TSH 2.96 uIU/mL (0.55-4.78)
--- NOTE | 2025-01-22 23:04 | W.PC.ACHO ---
Registration Status: REG ER Primary Language: Preferred Language: Unable to Obtain ED Information & Data Chief Complaint Chest Pain 01/22/25 14:48 Triage Note Pt complaining of CP. EMS 01/22/25 14:01 gave 324mg ASA and 2 nitro with some relief Medical / Surgical History (Last Reviewed 01/22/25 @ 21:42 by Arslan Leigh) LVH (left ventricular hypertrophy) H/O testicular mass Hx of smoking Polysubstance use disorder Chronic pain syndrome CAD (coronary artery disease) NSTEMI (non-ST elevated myocardial infarction) Mesothelioma GERD (gastroesophageal reflux disease) Insomnia Scleroderma HLD (hyperlipidemia) (Last Reviewed 01/22/25 @ 21:42 by Arslan Leigh) History of esophagogastroduodenoscopy (~05/2024) History of orchiectomy, unilateral H/O radiofrequency ablation (RFA) of nerve of lumbar spine H/O cardiac catheterization Most Recent Vital Signs Pulse 54 L 01/22/25 22:51 Pulse Rhythm Regular 01/22/25 20:10 Pulse 54 L 01/22/25 20:00 Respiratory Rate 18 01/22/25 22:51 Respiratory Effort Normal 01/22/25 20:10 Respiratory Depth Normal 01/22/25 20:10 Respiratory Pattern Normal 01/22/25 18:53 Blood Pressure 115/66 01/22/25 22:51 Blood Pressure Mean 82 01/22/25 22:51 Pulse Oximetry 100 01/22/25 18:52 Pain Level 2 01/22/25 18:53 Allergies meloxicam Allergy (Intermediate, Verified 01/22/25 14:07) Unknown prednisone Adverse Reaction (Intermediate, Verified 01/22/25 14:07) Other (See Comment) ED Active Medications Generic Name Dose Route Start Last Admin Trade Name Freq PRN Reason Stop Dose Admin Iohexol 100 ml 01/22/25 16:30 01/22/25 16:28 Omnipaque 350 Mg/Ml 100 Ml Btl IJ 02/21/25 23:59 80 ml DIRECTED MELANIE Administration Nitroglycerin 0.4 mg 01/22/25 14:42 01/22/25 17:03 Nitroglycerin 0.4 Mg Tab SL 0.4 mg Q5 MIN PRN X3 PRN Administration Sodium Chloride 50 ml 01/22/25 16:30 01/22/25 16:28 Normal Saline - Diluent 50 Ml Vial IJ 50 ml DIRECTED MELANIE Administration IV IV Catheter Type [Left Saline Lock Antecubital] IV Catheter Type [Right Saline Lock Antecubital] IV Catheter Gauge [Left 18 Antecubital] IV Catheter Gauge [Right 18 Antecubital] Diagnostics 01/22/25 01/22/25 01/22/25 Range/Units 22:14 17:10 15:27 WBC (4.4-10.8) 10^3/uL RBC (4.36-5.78) 10^6/uL Hgb (13.5-17.5) g/dL Hct (40.0-50.0) % MCV (80-95) fL MCH (27.0-33.0) pg MCHC (32.0-36.0) % RDW (11.8-14.1) % Plt Count (130-400) 10^3/uL MPV (8.0-11.0) fL Immature Gran % % Neutrophils % % Lymphocytes % % Monocytes % % Eosinophils % % Basophils % % Nucleated RBC % (0.0-0.3) % Absolute Neutrophils (1.2-6.7) 10^3/uL Absolute Lymphocytes (1.2-3.4) 10^3/uL Absolute Monocytes (0.1-0.8) 10^3/uL Absolute Eosinophils (0.0-0.7) 10^3/uL Absolute Basophils (0.0-0.2) 10^3/uL RBC Morphology Hypochromasia Anisocytosis Microcytosis Sodium (136-145) mmol/L Potassium (3.5-5.1) mmol/L Chloride (98-107) mmol/L Carbon Dioxide (20.0-31.0) mmol/L Anion Gap (3-11) mmol/L BUN (9-23) mg/dL Creatinine (0.73-1.18) mg/dL Est GFR (CKD-EPI 2020) (mL/min/1.73m2) Glucose (74-106) mg/dL Calcium (8.3-10.6) mg/dL Magnesium (1.6-2.6) mg/dL Total Bilirubin (0.2-1.2) mg/dL AST (<34) U/L ALT (10-49) U/L Alkaline Phosphatase (46-116) U/L Troponin I 8 7 (<54) ng/L NT-Pro-B Natriuret Pep (<300) pg/mL Total Protein (5.7-8.2) g/dL Albumin (3.2-5.0) g/dL Lipase (<53) U/L TSH 2.96 (0.55-4.78) uIU/mL COVID-19 Source Pending SARS-CoV-2 (PCR) Pending Influenza Type A (PCR) Pending Influenza Type B (PCR) Pending RSV (PCR) Pending 01/22/25 Range/Units 14:14 WBC 7.75 (4.4-10.8) 10^3/uL RBC 4.95 (4.36-5.78) 10^6/uL Hgb 12.0 L (13.5-17.5) g/dL Hct 39.5 L (40.0-50.0) % MCV 80 (80-95) fL MCH 24.2 L (27.0-33.0) pg MCHC 30.4 L (32.0-36.0) % RDW (11.8-14.1) % Plt Count 333 (130-400) 10^3/uL MPV 9.0 (8.0-11.0) fL Immature Gran % 0.3 % Neutrophils % 47.8 % Lymphocytes % 31.4 % Monocytes % 9.8 % Eosinophils % 9.4 % Basophils % 1.3 % Nucleated RBC % 0.0 (0.0-0.3) % Absolute Neutrophils 3.71 (1.2-6.7) 10^3/uL Absolute Lymphocytes 2.43 (1.2-3.4) 10^3/uL Absolute Monocytes 0.76 (0.1-0.8) 10^3/uL Absolute Eosinophils 0.73 H (0.0-0.7) 10^3/uL Absolute Basophils 0.10 (0.0-0.2) 10^3/uL RBC Morphology See Below Hypochromasia 1+ Anisocytosis 2+ Microcytosis 2+ Sodium 143 (136-145) mmol/L Potassium 4.1 (3.5-5.1) mmol/L Chloride 106 (98-107) mmol/L Carbon Dioxide 27.7 (20.0-31.0) mmol/L Anion Gap 9.3 (3-11) mmol/L BUN 20 (9-23) mg/dL Creatinine 1.01 (0.73-1.18) mg/dL Est GFR (CKD-EPI 2020) 77.42 (mL/min/1.73m2) Glucose 93 (74-106) mg/dL Calcium 9.1 (8.3-10.6) mg/dL Magnesium 1.9 (1.6-2.6) mg/dL Total Bilirubin 0.3 (0.2-1.2) mg/dL AST 24 (<34) U/L ALT 15 (10-49) U/L Alkaline Phosphatase 60 (46-116) U/L Troponin I 8 (<54) ng/L NT-Pro-B Natriuret Pep 208 (<300) pg/mL Total Protein 7.4 (5.7-8.2) g/dL Albumin 4.5 (3.2-5.0) g/dL Lipase 35 (<53) U/L TSH (0.55-4.78) uIU/mL COVID-19 Source SARS-CoV-2 (PCR) Influenza Type A (PCR) Influenza Type B (PCR) RSV (PCR) Intake and Output - 24 Hour Total 01/22/25 13:54 thru 01/22/25 17:43 Intake Total 100 Balance 100 Weight 79.379 kg Intake: IV 100 Falls Risk Assessment History of Falls No History 01/22/25 14:18 Contributing Factors No Factors 01/22/25 14:18 Ambulatory Aids Independent 01/22/25 14:18 Tubes/Lines None 01/22/25 14:18 Gait Evaluation No gait disturbance 01/22/25 14:18 Cognition No cognitive impairment 01/22/25 14:18 Fall Total Score 0 01/22/25 14:18 Level of Risk Standard/Low Risk 01/22/25 14:18 Problems (Last Reviewed 01/22/25 @ 21:42 by Arslan Leigh) Unstable angina (Acute) Attestation Statement: By documenting the first initial, last name, and credentials of the reporting nurse below, both parties acknowledge that all relevant information regarding the patient handoff has been communicated, and that all questions have been addressed to ensure continuity and safety of care. Additional Patient Information/Comments: Report Received From: Danita Gill RN
[2025-01-22 23:17] LABS: COVID-19 PCR Negative (Negative); RSV PCR Negative (Negative)
[2025-01-22 23:43] LABS: Troponin I 9 ng/L (<54)
[2025-01-22] MEDS: MAGNESIUM SULFATE 2 GM/50 ML BAG IV_INF (23:46)
[2025-01-22] MEDS: nitroGLYcerin 2% 1 INCH/1 GM PKT TP (23:51)
[2025-01-23] VITALS (66 sets, daily range): BP systolic 93–123; BP diastolic 59–88; PULSE 43–72; RESP 9–26; TEMP 36.6–36.9; O2SAT 86–97
[2025-01-23] MEDS: Metoprolol 12.5 MG TAB PO
[2025-01-23] MEDS: Normal Saline Flush 10 ML SYR IVP ×3 (02:03→21:02)
[2025-01-23] MEDS: MORPHine 2 MG/ML SYR 4 MG IVP (02:03)
[2025-01-23] MEDS: Atorvastatin 40 MG TAB 80 MG PO ×2 (02:03→21:02)
[2025-01-23] MEDS: Heparin 5,000 UNITS/ML VIAL 5000 UNITS SC ×3 (06:39→22:10)
[2025-01-23] MEDS: nitroGLYcerin 2% 1 INCH/1 GM PKT TP ×3 (06:40→17:44)
[2025-01-23 06:44] LABS: HCT 38.4 % (40.0-50.0); HGB 11.7 g/dL (13.5-17.5); MCH 24.4 pg (27.0-33.0); MPV 9.8 fL (8.0-11.0); Platelet Count 336 10^3/uL (130-400); RBC 4.79 10^6/uL (4.36-5.78); WBC 9.70 10^3/uL (4.4-10.8)
[2025-01-23 06:54] LABS: Troponin I 9 ng/L (<54)
[2025-01-23 07:03] LABS: ALT 14 U/L (10-49); AST 23 U/L (<34); Albumin 4.3 g/dL (3.2-5.0); Alkaline Phosphatase 63 U/L (46-116); Anion Gap 9.4 mmol/L (3-11); BUN 18 mg/dL (9-23); Bilirubin, Total 0.4 mg/dL (0.2-1.2); CO2 26.6 mmol/L (20.0-31.0); Calcium 8.9 mg/dL (8.3-10.6); Chloride 106 mmol/L (98-107); Glucose 89 mg/dL (74-106); Potassium 4.0 mmol/L (3.5-5.1); Sodium 142 mmol/L (136-145); Total Protein 7.2 g/dL (5.7-8.2)
[2025-01-23 07:11] LABS: Cannabinoids THC Negative (Negative)
[2025-01-23 07:24] LABS: MCHC 30.5 % (32.0-36.0); MCV 80 fL (80-95)
[2025-01-23] MEDS: Aspirin 81 MG CHEW PO (08:36)
[2025-01-23] MEDS: Gabapentin 300 MG CAP PO ×3 (08:36→21:02)
[2025-01-23] MEDS: Sucralfate 1 GM TAB PO ×2 (08:36→21:01)
[2025-01-23] MEDS: QUEtiapine 50 MG TAB PO (08:36)
[2025-01-23] MEDS: Pantoprazole 40 MG TABCR PO (08:36)
--- NOTE | 2025-01-23 08:46 | PDOC.CMIN ---
Date of service: 01/23/25 Time of Service: 08:46 Care Management Initial Assmt Initial Assessment Reason for Hospitalization: unstable angina Functional Status/Living Situation Patient Presentation: Prashant was lying in bed accompanied by a public health service officer when CM met with him. He was polite and engaged well in conversation. Magnus is originally from [place], [place] He has 7 children, 6 of whom live locally. His 7th child lives in [place]. When asked if he is in contact with his children he said absolutely and indicated that they have a close relationship. Magnus is currently incarcerated but has worked for over 20 years in [employer] with the same [employer] Magnus was admitted with unstable angina. He has a strong cardiac history and is waiting for a bed at [facility]. Town of Residence: [facility] Resides with: Other (nursing home) Significant Other/Family: Local Natural Supports: children Employment Status: Unemployed Instrumental Activities of Daily Living (ADLs): Independent Medications Medication Management: No Issues/Barriers identified Advance Directives Advance Directives: Do you have an Advance Directive: N 05/07/24, 14:48 AD On File at [facility]: N 05/07/24, 14:48 Date Asked 01/22/25 01/22/25, 14:13 AD Date Reviewed COLST On File at [facility] COLST Date Scanned Code Status Resuscitation Status Full Code Portal Pt does not currently have a portal and education provided: Yes Insurance Coverage/Financial Issues Insurance: Medicaid Care Team Visit Care Team Role Provider Type Horacio Brambila MD MD [facility] STAFF PHYSICIAN Evelia Frias Primary Care Provider NON-[facility] STAFF PHYSICIAN Kan Zavala MD Emergency Provider [facility] STAFF PHYSICIAN Arslan Leigh Admit Provider NON-[facility] STAFF PHYSICIAN Attending Provider Discharge Potential Discharge Needs: Other (return to corrections) Anticipated Barriers to Discharge: Bed availability (needs transfer to [facility]) Patient/Family Education Needs: Review discharge instructions, discuss Ask Me Three Transportation: Facility Transport Plan: Anticipate Magnus will be transferred to [facility] when a bed is available. He will follow up with the facility providers and plan of care and transport via EMS coordinated by nursing supervisor small appliance assembly. CM will follow. Social Determinants of Health Screening Social Determinants of health last assessed in clinic: 01/23/25 Will the Patient Participate in the Screening?: Yes Do you worry about having a steady place to live?: no Problems where you live: no known problems In the past 12 months, have you had to go without electric, gas, oil or water in your home?: no 1. Within the past 12 months, we worried whether our food would run out before we got money to buy more.: Never true 2. Within the past 12 months, the food we bought just didn't last and we didn't have money to get more.: Never true Has lack of transportation kept you from medical appointments or from doing things needed for daily living?: no Has anyone in your life made you feel unsafe or unsupported?: no How hard is it for you to pay for the very basics like food, housing, medical care, and heating? Would you say it is:: Not hard at all Do you want help finding or keeping work or a job?: I do not need or want help If for any reason you need help with day-to-day activities such as bathing, preparing meals, shopping, managing finances, etc., do you get the help you need?: I get all the help I need How often do you feel lonely or isolated from those around you?: Never Do you speak a language other than Italian at home?: No Does the patient want assistance with any of the above?: No PFSH All Active Problems Unstable angina (Acute) Esophagitis (Acute) Medical History LVH (left ventricular hypertrophy) H/O testicular mass Hx of smoking 23 ppd Polysubstance use disorder Chronic pain syndrome CAD (coronary artery disease) NSTEMI (non-ST elevated myocardial infarction) 2021 Mesothelioma GERD (gastroesophageal reflux disease) Insomnia Scleroderma HLD (hyperlipidemia) Surgical History History of esophagogastroduodenoscopy (~05/2024) History of orchiectomy, unilateral (L) H/O radiofrequency ablation (RFA) of nerve of lumbar spine H/O cardiac catheterization 2018 Social History Smoking/Tobacco Use Status: Former Tobacco Use Quit Date: 04/01/24 Smoking risk assessment performed?: Yes Alcohol Intake: never Drug use: Current Sobriety Substance use type: former substance user Housing: house Additional Social history: [facility]
[2025-01-23] MEDS: Hydroxychloroquine 200 MG TAB PO (08:51)
--- NOTE | 2025-01-23 12:02 | PHA.REVIEW2 ---
Pharmacy Admission Review Admission Clinical Review Admission Pharmacy Review: Unstable angina (Acute) meloxicam Allergy (Intermediate, Verified 01/22/25 14:07) Unknown prednisone Adverse Reaction (Intermediate, Verified 01/22/25 14:07) Other (See Comment) Resuscitation Status Full Code Height 5 ft 7 in Weight 77.9 kg Pharmacy Admission Review Renal Dosing Renal Dosing: BUN 18 mg/dL (9-23) 01/23/25 05:44 Creatinine 1.03 mg/dL (0.73-1.18) 01/23/25 05:44 Medications needing adjustments: Reviewed (CrCl 92 mL/min) List of meds needing interventions: Current medications are okay Anticoagulation Anticoagulation: Hgb 11.7 g/dL (13.5-17.5) L 01/23/25 05:44 Hct 38.4 % (40.0-50.0) L 01/23/25 05:44 Plt Count 336 10^3/uL (130-400) 01/23/25 05:44 Creatinine 1.03 mg/dL (0.73-1.18) 01/23/25 05:44 DVT Prophylaxis: Reviewed Medications: Heparin (q8h) Opiate Usage Evaluate Pain Scale/Pains Meds: Reviewed (morphine 4mg IVP q2h PRN - 4mg/24hrs) Scheduled Bowel Reg ordered if on Opiates?: No (PRN Miralax/docusate) Relevant Labs Relevant Labs: Sodium 142 mmol/L (136-145) 01/23/25 05:44 Potassium 4.0 mmol/L (3.5-5.1) 01/23/25 05:44 Chloride 106 mmol/L (98-107) 01/23/25 05:44 Magnesium 1.9 mg/dL (1.6-2.6) 01/22/25 14:14 Electrolytes, C-Reactive P, ESR: Reviewed Cardiac Review Cardiac Review: Troponin I 9 ng/L (<54) 01/23/25 05:44 NT-Pro-B Natriuret Pep 208 pg/mL (<300) 01/22/25 14:14 Blood Pressure : Heart Rate 98/72 : 44 1059 Blood Pressure : Heart Rate 97/68 : 48 1000 Blood Pressure : Heart Rate 93/60 : 46 0801 Blood Pressure : Heart Rate 97/66 : 47 0601 Blood Pressure : Heart Rate 105/75 : 47 0401 BP, HR, EF%: Reviewed (Ox 90 and oxygen flow rate = 2) List meds needing interventions: Has order for metoprolol 12.5mg q6h QTc Review QTc: Reviewed (430 from 01/22/25) IV to PO Switch IV Medications: Reviewed (morphine) Home Meds Home Med List reviewed: Intervened Relevent Home Meds Not ordered & why?: calcium carbonate (PRN), naproxen (PRN) and omeprazole (has order for pantoprazole) Sent message to nurse to ask if patient takes omeprazole or pantoprazole at home - both on home med list, currently has order for pantoprazole. Waiting to hear back. Sent message to nurse to verify how patient takes quetiapine at home. Home med list says 50mg daily and 100mg daily PRN. Per external fill history its 50mg QAM and 100mg QHS. Waiting to hear back. Current Meds Current Medication Order Review: Intervened Comments: Added 2nd PRN to morphine and quetiapine orders per pharmacy protocol Changed pantoprazole timing from 0830 to 0730 per pharmacy protocol
--- NOTE | 2025-01-23 13:28 | PGE_ITS ---
Date of Service Date of service: 01/23/25 Time of Service: 13:28 Assessment and Plan Assessment and plan (1) Unstable angina: Start date: 01/22/25 Status: Acute Assessment and plan: -patient with ongoing chest pain at rest with normal EKG and negative troponins with significant cardiac history -discussed with [facility] (where patient has had previous care), accepted for transfer once bed is available by Dr. Johnson -continue with Q6hr nitro paste, asa and statin (2) NSTEMI (non-ST elevated myocardial infarction): Assessment and plan: -history of, no ST depressions or t-wave inversions on EKG and troponins negative -last Cath in 2019 (3) Polysubstance use disorder: Assessment and plan: -history of cocaine use -UDS negative for cocaine, positive for opiates (which patient received at this facility) (4) HLD (hyperlipidemia): Assessment and plan: -increase lipitor to 80mg daily (5) Scleroderma: Assessment and plan: -history of lupus on Plaquenil but has no specific therapy for scleroderma Discharge Planning Discharge Planning: to [facility] once bed available Subjective Subjective Interval history since last seen: Patient states that he is doing well and has no complaints or concerns at this time. Exam Narrative Exam Narrative: well appearing older gentleman laying in bed in no acute distress, AOx4, heart RRR, lungs CTAB, abdomen soft, non-tender, non-distended Objective Last Vital Signs Temp 97.9 F 01/23/25 10:59 Pulse 45 L 01/23/25 12:01 Resp 14 01/23/25 13:00 BP 98/68 L 01/23/25 12:01 Pulse Ox 92 01/23/25 12:24 Laboratory Results - last 24 hr 01/22/25 01/22/25 01/22/25 14:14 15:27 17:10 WBC 7.75 RBC 4.95 Hgb 12.0 L Hct 39.5 L MCV 80 MCH 24.2 L MCHC 30.4 L RDW Plt Count 333 MPV 9.0 Immature Gran % 0.3 Neutrophils % 47.8 Lymphocytes % 31.4 Monocytes % 9.8 Eosinophils % 9.4 Basophils % 1.3 Nucleated RBC % 0.0 Absolute Neutrophils 3.71 Absolute Lymphocytes 2.43 Absolute Monocytes 0.76 Absolute Eosinophils 0.73 H Absolute Basophils 0.10 RBC Morphology See Below Hypochromasia 1+ Anisocytosis 2+ Microcytosis 2+ Sodium 143 Potassium 4.1 Chloride 106 Carbon Dioxide 27.7 Anion Gap 9.3 BUN 20 Creatinine 1.01 Est GFR (CKD-EPI 2020) 77.42 Glucose 93 Calcium 9.1 Magnesium 1.9 Total Bilirubin 0.3 AST 24 ALT 15 Alkaline Phosphatase 60 Troponin I 8 7 8 NT-Pro-B Natriuret Pep 208 Total Protein 7.4 Albumin 4.5 Lipase 35 TSH 2.96 Urine Opiates Screen Urine Methadone Screen Ur Barbiturates Screen Ur Tricyclics Screen Ur Amphetamines Screen U Benzodiazepines Scrn Urine Cocaine Screen U Cannabinoids Screen COVID-19 Source SARS-CoV-2 (PCR) Influenza Type A (PCR) Influenza Type B (PCR) RSV (PCR) 01/22/25 01/22/25 01/23/25 22:14 23:20 05:00 WBC RBC Hgb Hct MCV MCH MCHC RDW Plt Count MPV Immature Gran % Neutrophils % Lymphocytes % Monocytes % Eosinophils % Basophils % Nucleated RBC % Absolute Neutrophils Absolute Lymphocytes Absolute Monocytes Absolute Eosinophils Absolute Basophils RBC Morphology Hypochromasia Anisocytosis Microcytosis Sodium Potassium Chloride Carbon Dioxide Anion Gap BUN Creatinine Est GFR (CKD-EPI 2020) Glucose Calcium Magnesium Total Bilirubin AST ALT Alkaline Phosphatase Troponin I 9 NT-Pro-B Natriuret Pep Total Protein Albumin Lipase TSH Urine Opiates Screen Positive A Urine Methadone Screen Negative Ur Barbiturates Screen Negative Ur Tricyclics Screen Negative Ur Amphetamines Screen Negative U Benzodiazepines Scrn Negative Urine Cocaine Screen Negative U Cannabinoids Screen Negative COVID-19 Source Nasopharynx SARS-CoV-2 (PCR) Negative Influenza Type A (PCR) Negative Influenza Type B (PCR) Negative RSV (PCR) Negative 01/23/25 05:44 WBC 9.70 RBC 4.79 Hgb 11.7 L Hct 38.4 L MCV 80 MCH 24.4 L MCHC 30.5 L RDW Plt Count 336 MPV 9.8 Immature Gran % Neutrophils % Lymphocytes % Monocytes % Eosinophils % Basophils % Nucleated RBC % Absolute Neutrophils Absolute Lymphocytes Absolute Monocytes Absolute Eosinophils Absolute Basophils RBC Morphology Hypochromasia Anisocytosis Microcytosis Sodium 142 Potassium 4.0 Chloride 106 Carbon Dioxide 26.6 Anion Gap 9.4 BUN 18 Creatinine 1.03 Est GFR (CKD-EPI 2020) 75.69 Glucose 89 Calcium 8.9 Magnesium Total Bilirubin 0.4 AST 23 ALT 14 Alkaline Phosphatase 63 Troponin I 9 NT-Pro-B Natriuret Pep Total Protein 7.2 Albumin 4.3 Lipase TSH Urine Opiates Screen Urine Methadone Screen Ur Barbiturates Screen Ur Tricyclics Screen Ur Amphetamines Screen U Benzodiazepines Scrn Urine Cocaine Screen U Cannabinoids Screen COVID-19 Source SARS-CoV-2 (PCR) Influenza Type A (PCR) Influenza Type B (PCR) RSV (PCR) VTE Prohylaxis Risk Level: Moderate/High Risk Contraindications: None Prophylaxis: Pharmacologic and Mechanical Time Spent with Patient Time Spent with Patient: >50 minutes Time was spent: preparing to see the patient(eg.review tests), obtaining and/or reviewing separately otained hiistory, ordering medications,tests, procedures, referring, communicating with other health adult live in caregiver, indepentently interpreting results, counseling the patient and care coordination
[2025-01-23] MEDS: QUEtiapine 100 MG TAB PO (21:02)
[2025-01-24] VITALS (18 sets, daily range): BP systolic 95–105; BP diastolic 65–70; PULSE 42–60; RESP 12–18; TEMP 36.6; O2SAT 97–98
[2025-01-24] MEDS: Heparin 5,000 UNITS/ML VIAL 5000 UNITS SC (06:29)
[2025-01-24] MEDS: nitroGLYcerin 2% 1 INCH/1 GM PKT TP ×2 (06:30)
[2025-01-24] MEDS: Gabapentin 300 MG CAP PO (07:50)
[2025-01-24] MEDS: Sucralfate 1 GM TAB PO (07:50)
[2025-01-24] MEDS: Omeprazole 20 MG CAPCR 40 MG PO (07:50)
[2025-01-24] MEDS: Hydroxychloroquine 200 MG TAB PO (07:50)
[2025-01-24] MEDS: QUEtiapine 50 MG TAB PO (07:50)
[2025-01-24] MEDS: Normal Saline Flush 10 ML SYR IVP (07:50)
[2025-01-24] MEDS: Aspirin 81 MG CHEW PO (07:50)
--- NOTE | 2025-01-24 10:24 | DSE_ITS ---
Date of service: 01/24/25 Time of Service: 10:00 DS: Diagnosis Discharge Diagnosis (1) Unstable angina: Status: Acute Asessment and Plan: Ongoing chest pain at rest EKG unremarkable, troponins negative Dr Johnson, cardiology at [facility], accepted patient for care pending a bed Continuing nitroglycerin paste q6h, aspirin, statin (2) NSTEMI (non-ST elevated myocardial infarction): Asessment and Plan: History of NSTEMI. Currently no ST depressions nor t-wave inversions on EKG. (3) Polysubstance use disorder: Asessment and Plan: History of cocaine use UDS negative for cocaine UDS positive for opiates, likely from those given at this facility (4) HLD (hyperlipidemia): Asessment and Plan: Home atorvastatin increased to 80 mg daily (5) Scleroderma: Asessment and Plan: Patient is given hydroxychloroquine Some indication that he had SLE diagnosis as well Patient does not recall being told he had sarcoidosis No central findings on imaging Continued home med Discharge Plan Disposition Patient Disposition: Transfer-Acute Inpatient Care Specific Acute Inpt Facility: [facility] Anticipated Discharge Date/Time: 01/24/25 12:00 Condition: Critical Discharge Details Reason For Visit: Unstable Angina Admit Date/Time: 01/22/25 21:59 Admit Provider: Arslan Leigh Attending Provider: Arslan Leigh Primary Care Provider: Evelia Frias [place] [facility] Course Hospital Course: Magnus Santillan is a 54 year old male inmate presenting January 22 with substernal chest pain, with history of 2019 coronary stenting. He was found to have unstable angina, responsive to nitroglycerin and morphine. Troponins negative x5. He has been mildly bradycardic to the high 40's when sleeping, otherwise no cardiac events. He was started on aspirin and high dose statin. No heparin drip. At this time he has been accepted for transfer to [facility], where he had care in the past. He was allowed a cup of coffee on the morning of January 24 at 9 am. PMH includes scleroderma on hydroxychloroquine, CAD with 2019 stenting and multiple subsequent catheterizations without noted occlusion, distant cocaine use, opioid use disorder no longer on suboxone, behavioral disorder on que tiapine, GERD on PPI and sucralfate. Home Meds and New Rx's Prescriptions: New atorvastatin 40 mg Tablet 80 mg PO QPM Qty: 0 0RF Continued aspirin 81 mg capsule 81 mg PO DAILY Antacid Ext Str (calcium carb) 300 mg (750 mg) tablet,chewable 300 mg PO TID PRN naproxen 375 mg tablet 375 mg PO BID PRNQty: 30 0RF hydroxychloroquine 200 mg tablet 200 mg PO DAILY Patient Comments: TAKE ONE TABLET BY MOUTH EVERY DAY omeprazole 40 mg capsule,delayed release(DR/EC) 40 mg PO BID Patient Comments: TAKE ONE CAPSULE BY MOUTH EVERY DAY gabapentin 300 mg capsule 300 mg PO TID Patient Comments: TAKE ONE CAPSULE BY MOUTH THREE TIMES A DAY quetiapine 100 mg tablet 100 mg PO HS Patient Comments: TAKE ONE TABLET BY MOUTH AT BEDTIME DIRECTED quetiapine 50 mg tablet 50 mg PO DAILY Patient Comments: TAKE ONE TABLET BY MOUTH EVERY MORNING DIRECTED sucralfate [Carafate] 1 gram tablet 1 g PO BID Qty: 60 0RF Discontinued atorvastatin [Lipitor] 20 mg tablet 20 mg PO DAILY Discharge Instructions Instructions: Angina Activity:: per receiving facility Equipment/Supplies:: No Equipment Needed Diet:: NPO for procedure Discharge Orders Discharge Orders: Discharge Order (Routine); Ordered 01/24/25 Ordered By: Redd Jacques Discharge Data Discharge Date/Time-TO BE ENTERED AT DEPARTURE: 01/24/25 11:18 DS: Summary Time Spent with Patient providing and/or coordinating discharge services: Less than 30 minutes Status at Discharge Functional status at discharge: independent ambulation Overall status at discharge: patient is not back to baseline Mental Status: mental status grossly normal Speech and Movement: speech and movement normal Mood: congruent mood Affect: normal affect Exam Narrative Exam Narrative: General: This is a pleasant man in no distress HEENT: Normocephalic, atraumatic CV: RRR Resp: CTAB Abd: soft, NTND MSK: voluntary motion x4 Neuro: awake, alert, no focal deficits Psych Mental Status: mental status grossly normal Speech and Movement: speech and movement normal Mood: congruent mood Affect: normal affect DS: Data Vitals/I&O Vitals and I&O: Vital Signs Temperature 36.6 C 01/24/25 08:02 Temperature Source Temporal Artery Scan 01/23/25 08:40 Pulse 51 L 01/24/25 08:02 Pulse Rhythm Regular 01/22/25 20:10 Pulse 49 L 01/24/25 08:02 Respiratory Rate 12 01/24/25 08:02 Respiratory Effort Normal 01/22/25 23:00 Respiratory Depth Normal 01/22/25 23:00 Respiratory Pattern Normal 01/22/25 23:00 Blood Pressure 105/65 01/24/25 08:02 Blood Pressure Mean 79 01/24/25 08:02 Pulse Oximetry 98 01/24/25 08:02 Oxygen Delivery Method Room Air 01/23/25 12:24 Oxygen Flow Rate 0 01/23/25 12:24 Pain Level 2 01/24/25 08:00 Intake & Output 01/23/25 01/23/25 01/24/25 11:59 23:59 11:59 Intake Total 1090 / 1930 840 / 1930 280 / 280 Output Total 600 / 1775 1175 / 1775 600 / 600 Balance 490 / 155 -335 / 155 -320 / -320 Weight 77.5 kg Intake: Oral 1090 / 1930 840 / 1930 280 / 280 Output: Urine 600 / 1775 1175 / 1775 600 / 600 Other: Urine Color Yellow Yellow Yellow Urine Appearance Clear Clear Clear Urine Odor Normal Normal Data Completed and Pending Pending Labs at Discharge: 01/22/25 01/22/25 01/22/25 14:14 15:27 17:10 WBC 7.75 RBC 4.95 Hgb 12.0 L Hct 39.5 L MCV 80 MCH 24.2 L MCHC 30.4 L RDW Plt Count 333 MPV 9.0 Immature Gran % 0.3 Neutrophils % 47.8 Lymphocytes % 31.4 Monocytes % 9.8 Eosinophils % 9.4 Basophils % 1.3 Nucleated RBC % 0.0 Absolute Neutrophils 3.71 Absolute Lymphocytes 2.43 Absolute Monocytes 0.76 Absolute Eosinophils 0.73 H Absolute Basophils 0.10 RBC Morphology See Below Hypochromasia 1+ Anisocytosis 2+ Microcytosis 2+ Sodium 143 Potassium 4.1 Chloride 106 Carbon Dioxide 27.7 Anion Gap 9.3 BUN 20 Creatinine 1.01 Est GFR (CKD-EPI 2020) 77.42 Glucose 93 Calcium 9.1 Magnesium 1.9 Total Bilirubin 0.3 AST 24 ALT 15 Alkaline Phosphatase 60 Troponin I 8 7 8 NT-Pro-B Natriuret Pep 208 Total Protein 7.4 Albumin 4.5 Lipase 35 TSH 2.96 Urine Opiates Screen Urine Methadone Screen Ur Barbiturates Screen Ur Tricyclics Screen Ur Amphetamines Screen U Benzodiazepines Scrn Urine Cocaine Screen U Cannabinoids Screen COVID-19 Source SARS-CoV-2 (PCR) Influenza Type A (PCR) Influenza Type B (PCR) RSV (PCR) 01/22/25 01/22/25 01/23/25 22:14 23:20 05:00 WBC RBC Hgb Hct MCV MCH MCHC RDW Plt Count MPV Immature Gran % Neutrophils % Lymphocytes % Monocytes % Eosinophils % Basophils % Nucleated RBC % Absolute Neutrophils Absolute Lymphocytes Absolute Monocytes Absolute Eosinophils Absolute Basophils RBC Morphology Hypochromasia Anisocytosis Microcytosis Sodium Potassium Chloride Carbon Dioxide Anion Gap BUN Creatinine Est GFR (CKD-EPI 2020) Glucose Calcium Magnesium Total Bilirubin AST ALT Alkaline Phosphatase Troponin I 9 NT-Pro-B Natriuret Pep Total Protein Albumin Lipase TSH Urine Opiates Screen Positive A Urine Methadone Screen Negative Ur Barbiturates Screen Negative Ur Tricyclics Screen Negative Ur Amphetamines Screen Negative U Benzodiazepines Scrn Negative Urine Cocaine Screen Negative U Cannabinoids Screen Negative COVID-19 Source Nasopharynx SARS-CoV-2 (PCR) Negative Influenza Type A (PCR) Negative Influenza Type B (PCR) Negative RSV (PCR) Negative 01/23/25 05:44 WBC 9.70 RBC 4.79 Hgb 11.7 L Hct 38.4 L MCV 80 MCH 24.4 L MCHC 30.5 L RDW Plt Count 336 MPV 9.8 Immature Gran % Neutrophils % Lymphocytes % Monocytes % Eosinophils % Basophils % Nucleated RBC % Absolute Neutrophils Absolute Lymphocytes Absolute Monocytes Absolute Eosinophils Absolute Basophils RBC Morphology Hypochromasia Anisocytosis Microcytosis Sodium 142 Potassium 4.0 Chloride 106 Carbon Dioxide 26.6 Anion Gap 9.4 BUN 18 Creatinine 1.03 Est GFR (CKD-EPI 2020) 75.69 Glucose 89 Calcium 8.9 Magnesium Total Bilirubin 0.4 AST 23 ALT 14 Alkaline Phosphatase 63 Troponin I 9 NT-Pro-B Natriuret Pep Total Protein 7.2 Albumin 4.3 Lipase TSH Urine Opiates Screen Urine Methadone Screen Ur Barbiturates Screen Ur Tricyclics Screen Ur Amphetamines Screen U Benzodiazepines Scrn Urine Cocaine Screen U Cannabinoids Screen COVID-19 Source SARS-CoV-2 (PCR) Influenza Type A (PCR) Influenza Type B (PCR) RSV (PCR) PFSH All Active Problems Unstable angina (Acute) Esophagitis (Acute) Medical History LVH (left ventricular hypertrophy) H/O testicular mass Hx of smoking 23 ppd Polysubstance use disorder Chronic pain syndrome CAD (coronary artery disease) NSTEMI (non-ST elevated myocardial infarction) 2021 Mesothelioma GERD (gastroesophageal reflux disease) Insomnia Scleroderma HLD (hyperlipidemia) Surgical History History of esophagogastroduodenoscopy (~05/2024) History of orchiectomy, unilateral (L) H/O radiofrequency ablation (RFA) of nerve of lumbar spine H/O cardiac catheterization 2018 Social History Smoking/Tobacco Use Status: Former Tobacco Use Quit Date: 04/01/24 Smoking risk assessment performed?: Yes Alcohol Intake: never Drug use: Current Sobriety Substance use type: former substance user Housing: house Additional Social history: [facility] Time Spent with Patient Time Spent with Patient: <45 minutes Time was spent: preparing to see the patient(eg.review tests), obtaining and/or reviewing separately otained hiistory, ordering medications,tests, procedures, referring, communicating with other health care director, indepentently interpreting results, counseling the patient and care coordination
== END 2025-01-24 11:18 | disposition short-term general hospital (02) | DRG 303 ==
LOC: ER 22:06 → ICU 23:04
PROVIDERS: Admitting Provider Family Medicine; Emergency Provider General Practice; PCP Family Medicine; Responsible Provider Family Medicine; Visit Provider Family Medicine
DX: I25.110 Atherosclerotic heart disease of native coronary artery with unstable angina pectoris (principal); I25.2 Old myocardial infarction; E78.2 Mixed hyperlipidemia; F14.91 Cocaine use, unspecified, in remission; M34.9 Systemic sclerosis, unspecified; Z79.69 Long term (current) use of other immunomodulators and immunosuppressants; G89.4 Chronic pain syndrome; K21.9 Gastro-esophageal reflux disease without esophagitis; G47.00 Insomnia, unspecified; Z87.891 Personal history of nicotine dependence; F19.91 Other psychoactive substance use, unspecified, in remission; R91.1 Solitary pulmonary nodule; Z95.5 Presence of coronary angioplasty implant and graft; F11.91 Opioid use, unspecified, in remission; F91.9 Conduct disorder, unspecified; Z79.899 Other long term (current) drug therapy
CPT/HCPCS: 00123; 36415; 71275; 80053; 80307; 83690; 85027; 87637; 93005; 96365; 99285; 71046; 74174; 83735; 83880; 84443; 84484; 85025; 93010; 99223; 99233; 99238; J0131; J1644; J2270; J3475; J3490